=== PATIENT | male | born 1955 | race Caucasian/White ===

== ENCOUNTER 2018-03-28 08:55 | Emergency (ER) | payer MEDICARE ==
[~2018-03-28] VITALS: Ht 182.9 cm; Wt 99.8 kg
[2018-03-28 09:19] LABS: BASOPHILS ABSOLUTE AUTO 0.06 K/mm3 (0.00-0.23); BASOPHILS PERCENT AUTO 1 % (0-2); EOSINOPHILS ABSOLUTE AUTO 0.14 K/mm3 (0.00-0.68); EOSINOPHILS PERCENT AUTO 3 % (0-6); Hematocrit 47.8 % (37.0-53.0); Hemoglobin 16.5 g/dL (13.5-17.5); IMMATURE GRAN ABSOLUTE AUTO 0.01 K/mm3 (0.00-0.10); IMMATURE GRAN PERCENT AUTO 0 % (0-1); LYMPHOCYTES ABSOLUTE AUTO 1.57 K/mm3 (0.84-5.20); LYMPHOCYTES PERCENT AUTO 33 % (21-46); MONOCYTES ABSOLUTE AUTO 0.61 K/mm3 (0.16-1.47); MONOCYTES PERCENT AUTO 13 % (4-13); Mean Corpuscular HGB Conc 34.5 g/dL (31.5-36.5); Mean Corpuscular Volume 96 fL (80-100); Mean Platelet Volume 8.2 fL (9.1-12.4); NEUTROPHILS ABSOLUTE AUTO 2.35 K/mm3 (1.96-9.15); NEUTROPHILS PERCENT AUTO 50 % (41-73); Platelet Count 94 K/mm3 (150-400); RDW Standard Deviation 55.7 fL (35.1-46.3); White Blood Cell Count 4.74 K/mm3 (4.00-11.30)
[2018-03-28 09:40] LABS: Alanine Aminotransfer (ALT/SGP 30 U/L (12-78); Albumin, Blood 3.9 g/dL (3.4-5.0); Alk Phos 75 U/L (50-136); Anion Gap 10 mmol/L (6-16); Aspartate Aminotrans (AST/SGOT 31 U/L (12-37); Bilirubin, Total 0.7 mg/dL (0.1-1.0); Blood Urea Nitrogen 8 mg/dL (8-24); Bun/Creatinine Ratio 9.5 (12.0-20.0); CO2, Blood 27 mmol/L (21-32); Calcium, Blood 8.5 mg/dL (8.5-10.1); Chloride, Blood 102 mmol/L (98-108); Creatinine, Blood 0.84 mg/dL (0.60-1.20); Ethanol (Alcohol), Blood, Med 242 mg/dL; Glomerular Filtration Rate >60 (60-); Glucose, Blood 75 mg/dL (70-99); Potassium, Blood 3.7 mmol/L (3.5-5.5); Sodium, Blood 139 mmol/L (136-145); Total Protein, Blood 7.9 g/dL (6.4-8.2); Troponin I <0.015 ng/mL (0.000-0.040)
[2018-03-28 10:15] LABS: International Normalized Ratio 1.01; Prothrombin Time Results 10.4 Sec (9.7-11.5)
== END 2018-03-28 11:03 | disposition home or self-care (01) ==
LOC: ER 08:55
PROVIDERS: Emergency Medicine
DX: R60.0 Localized edema (principal); F10.129 Alcohol abuse with intoxication, unspecified; I10 Essential (primary) hypertension; F17.220 Nicotine dependence, chewing tobacco, uncomplicated
CPT/HCPCS: 71046; 80053; 83690; 83880; 84484; 85025; 85610; 85730; 96374; 99283; G0480; J1940

== ENCOUNTER 2018-03-28 19:30 | Emergency (ER) | payer MEDICARE ==
[~2018-03-28] VITALS: Ht 185.4 cm; Wt 99.8 kg
== END 2018-03-28 22:29 | disposition home or self-care (01) ==
LOC: ER 19:30
DX: L55.9 Sunburn, unspecified (principal); R60.0 Localized edema; F10.129 Alcohol abuse with intoxication, unspecified; I10 Essential (primary) hypertension; F17.220 Nicotine dependence, chewing tobacco, uncomplicated; Z59.0 Homelessness; R00.0 Tachycardia, unspecified
CPT/HCPCS: 93005; 93010

== ENCOUNTER 2018-04-01 10:08 | Emergency (ER) | payer MEDICARE ==
[~2018-04-01] VITALS: Ht 185.4 cm; Wt 99.8 kg
[2018-04-01 11:03] LABS: BASOPHILS ABSOLUTE AUTO 0.03 K/mm3 (0.00-0.23); BASOPHILS PERCENT AUTO 1 % (0-2); EOSINOPHILS ABSOLUTE AUTO 0.05 K/mm3 (0.00-0.68); EOSINOPHILS PERCENT AUTO 1 % (0-6); Hematocrit 43.3 % (37.0-53.0); IMMATURE GRAN ABSOLUTE AUTO 0.01 K/mm3 (0.00-0.10); IMMATURE GRAN PERCENT AUTO 0 % (0-1); LYMPHOCYTES PERCENT AUTO 20 % (21-46); MONOCYTES PERCENT AUTO 10 % (4-13); Mean Corpuscular HGB 33.3 pg (26.0-34.0); Mean Corpuscular HGB Conc 34.6 g/dL (31.5-36.5); Mean Corpuscular Volume 96 fL (80-100); Mean Platelet Volume 8.8 fL (9.1-12.4); NEUTROPHILS ABSOLUTE AUTO 2.68 K/mm3 (1.96-9.15); NEUTROPHILS PERCENT AUTO 67 % (41-73); Platelet Count 75 K/mm3 (150-400); RDW Coefficient Variation 16.1 % (11.7-14.2); RDW Standard Deviation 56.8 fL (35.1-46.3); White Blood Cell Count 3.97 K/mm3 (4.00-11.30)
[2018-04-01 11:25] LABS: Alanine Aminotransfer (ALT/SGP 31 U/L (12-78); Albumin, Blood 3.7 g/dL (3.4-5.0); Alk Phos 67 U/L (50-136); Anion Gap 17 mmol/L (6-16); Aspartate Aminotrans (AST/SGOT 35 U/L (12-37); Bilirubin, Total 1.5 mg/dL (0.1-1.0); Blood Urea Nitrogen 13 mg/dL (8-24); Bun/Creatinine Ratio 16.8 (12.0-20.0); CO2, Blood 21 mmol/L (21-32); Calcium, Blood 8.6 mg/dL (8.5-10.1); Chloride, Blood 100 mmol/L (98-108); Creatinine, Blood 0.77 mg/dL (0.60-1.20); Ethanol (Alcohol), Blood, Med 17 mg/dL; Globulin, Blood 3.7 g/dL (2.2-4.0); Glomerular Filtration Rate >60 (60-); Glucose, Blood 56 mg/dL (70-99); Potassium, Blood 3.6 mmol/L (3.5-5.5); Sodium, Blood 138 mmol/L (136-145); Total Protein, Blood 7.4 g/dL (6.4-8.2); Troponin I <0.015 ng/mL (0.000-0.040)
[2018-04-01] MEDS ORDERED: CHLO25 PO (14:30)
== END 2018-04-01 14:32 | disposition home or self-care (01) ==
LOC: ER 10:08
PROVIDERS: Emergency Medicine
DX: F10.239 Alcohol dependence with withdrawal, unspecified (principal); Y90.0 Blood alcohol level of less than 20 mg/100 ml
CPT/HCPCS: 71046; 80053; 83880; 84484; 85025; 93005; 93010; 99285; G0480

== ENCOUNTER → 2019-05-26 | Outpatient (CLI) | payer MEDICARE ==
[~2019-05-26] MED LIST: CEPH500 PO; CHLO25 PO; FURO20 PO; Flomax0.4 MG PO; GABA100 PO; Keflex500 MG PO; POTA10T PO; TAMS.4ER PO; Tylenol325 MG PO
== END | disposition home or self-care (01) ==
LOC: LAB SHORT 11:13 → LAB EV 11:13
DX: L02.11 Cutaneous abscess of neck (principal); L03.221 Cellulitis of neck
CPT/HCPCS: 87070; 87075; 87205

== ENCOUNTER 2019-07-02 15:22 | Observation (INO) | payer MEDICARE ==
[~2019-07-02] VITALS: Ht 185.4 cm; Wt 110.3 kg
[~2019-07-02 15:22] MED LIST changes: -CEPH500 PO; -FURO20 PO; -Flomax0.4 MG PO; -GABA100 PO; -Keflex500 MG PO; -POTA10T PO; -TAMS.4ER PO; -Tylenol325 MG PO
[2019-07-02 16:23] LABS: BASOPHILS ABSOLUTE AUTO 0.04 K/mm3 (0.00-0.23); BASOPHILS PERCENT AUTO 0 % (0-2); EOSINOPHILS ABSOLUTE AUTO 0.01 K/mm3 (0.00-0.68); EOSINOPHILS PERCENT AUTO 0 % (0-6); Hematocrit 43.6 % (37.0-53.0); Hemoglobin 15.2 g/dL (13.5-17.5); IMMATURE GRAN ABSOLUTE AUTO 0.04 K/mm3 (0.00-0.10); IMMATURE GRAN PERCENT AUTO 0 % (0-1); LYMPHOCYTES ABSOLUTE AUTO 0.84 K/mm3 (0.84-5.20); LYMPHOCYTES PERCENT AUTO 9 % (21-46); MONOCYTES ABSOLUTE AUTO 0.67 K/mm3 (0.16-1.47); MONOCYTES PERCENT AUTO 7 % (4-13); Mean Corpuscular HGB 34.1 pg (26.0-34.0); Mean Corpuscular HGB Conc 34.9 g/dL (31.5-36.5); Mean Corpuscular Volume 98 fL (80-100); Mean Platelet Volume 8.8 fL (9.1-12.4); NEUTROPHILS PERCENT AUTO 83 % (41-73); Platelet Count 79 K/mm3 (150-400); RDW Coefficient Variation 16.3 % (11.7-14.2); RDW Standard Deviation 59.2 fL (35.1-46.3); Red Blood Cell Count 4.46 M/mm3 (4.30-5.90)
[2019-07-02 16:44] LABS: Alanine Aminotransfer (ALT/SGP 32 U/L (12-78); Albumin, Blood 3.4 g/dL (3.4-5.0); Albumin/Globulin Ratio 0.8 (0.8-1.8); Alk Phos 82 U/L (50-136); Anion Gap 9 mmol/L (6-16); Aspartate Aminotrans (AST/SGOT 42 U/L (12-37); Bilirubin, Total 2.1 mg/dL (0.1-1.0); Blood Urea Nitrogen 12 mg/dL (8-24); Bun/Creatinine Ratio 17.2 (12.0-20.0); CO2, Blood 24 mmol/L (21-32); Calcium, Blood 8.9 mg/dL (8.5-10.1); Chloride, Blood 97 mmol/L (98-108); Globulin, Blood 4.2 g/dL (2.2-4.0); Glomerular Filtration Rate >60 (60-); Glucose, Blood 88 mg/dL (70-99); Potassium, Blood 3.9 mmol/L (3.5-5.5); Sodium, Blood 130 mmol/L (136-145); Total Protein, Blood 7.6 g/dL (6.4-8.2)
[2019-07-02 18:15] LABS: Source, Urine Clean Catch
[2019-07-02 18:21] LABS: Bilirubin, Urine Neg (Neg); Blood, Urine 2+ (Neg); Glucose Qualitative, Urine Neg (Neg); Ketones, Urine 2+ (Neg); Leukocyte Esterase, Urine 3+ (Neg); Nitrite, Urine Neg (Neg); Protein, Urine 2+ (Neg); Specific Gravity, Urine 1.015 (1.003-1.022); Urobilinogen, Urine NORM (Normal)
[2019-07-02 18:31] LABS: Appearance, Urine Clear (Clear); Color, Urine Yellow (P-Yellow)
[2019-07-02 18:33] LABS: White Blood Cells, Urine 25-50 /hpf (0-5)
[2019-07-02 18:34] LABS: Bacteria Many /hpf; Squamous Epithelial Cells Rare /hpf (Few)
--- NOTE | 2019-07-02 22:00 | NUR ---
PATIENT ARRIVED FROM ON [facility] AT 2140. PATIENT ABLE TO STAND AND TRANSFER TO THE [facility] WITH ONEE ASSIST. PATIENT VERY UNSTEADY AND NOT ABLE TO STAND ERECT. PATIENT SKIN IS RED ALL OVER. PATIENT BLE =3 SLIGHTLY GREATER IN THE RIGHT THAN LEFT. PATIENT STATES IT HAS BEEN GOING ON FOR 20 YRS. PATIENT HAS SWELLING NOTED ALL OVER. PATIENT DENIES ANY PAIN AT THIS TIME. WHEN ASKED IF HE HAD SUCIDAL THOUGHTS HE STATED YES AND THAT HE HAS ATTEMPTED TO SWALLOW A BUNCH OF PILLS IN THE PAST, BUT HAS NO CURRENT PLAN TO HURT HIMSELF. PATIENT IS ANXIOUS AND STATES THAT "THEY ARE GOING TO KILL HIM". PATIENT NOT ABLE TO STATE WHO THEY ARE. STATES THEY MAKE HIM MOVE AND CALL HIM NAMES, SHICH IS WHY HE IS HOMELESS. PATIENT STATES HE HAS BIPOLAR AND SCHIXOPHRENIA BUT DOES NOT TAKE ANY MEDICATIONS. PATIENT STATES HE HEARS VOICES BUT THEY USUALLY ONLY COME TO HIM WHEN HE IS BY HIMSELF. PATIENT IS REQUESTING HELP WITH [employer] TO FIND HOUSING.
--- NOTE | 2019-07-02 22:40 | NUR ---
CALLED PHARMACIST TO VERIFY IF IT WAS OK TO GIVE LOVENOX DUE TO PLT COUNT OF 79. PHARMACIST ALIZA HOROWITZ STATED HE SPOKE WITH DR. CHRISTIANSEN WHO STATED TO GIVE LOVENOX AND WILL MONITOR PLT CLOSELY. NO ORDERS TAKEN.
--- NOTE | 2019-07-03 01:32 | NUR ---
PATIENT RESTING IN BED AND APPEARS TO BE SLEEPING COMFORTABLY, SNORING LOUDLY.
[2019-07-03 04:21] LABS: Hematocrit 38.4 % (37.0-53.0); Hemoglobin 12.9 g/dL (13.5-17.5); Mean Corpuscular HGB 33.8 pg (26.0-34.0); Mean Corpuscular HGB Conc 33.6 g/dL (31.5-36.5); Platelet Count 67 K/mm3 (150-400); RDW Coefficient Variation 16.8 % (11.7-14.2); RDW Standard Deviation 62.3 fL (35.1-46.3); Red Blood Cell Count 3.82 M/mm3 (4.30-5.90); White Blood Cell Count 6.86 K/mm3 (4.00-11.30)
[2019-07-03 04:27] LABS: Mean Corpuscular Volume 101 fL (80-100)
[2019-07-03 04:45] LABS: Alanine Aminotransfer (ALT/SGP 24 U/L (12-78); Albumin, Blood 2.6 g/dL (3.4-5.0); Albumin/Globulin Ratio 0.7 (0.8-1.8); Alk Phos 75 U/L (50-136); Anion Gap 6 mmol/L (6-16); Aspartate Aminotrans (AST/SGOT 29 U/L (12-37); Bilirubin, Total 0.9 mg/dL (0.1-1.0); Blood Urea Nitrogen 21 mg/dL (8-24); Bun/Creatinine Ratio 25.8 (12.0-20.0); CO2, Blood 28 mmol/L (21-32); Calcium, Blood 8.4 mg/dL (8.5-10.1); Chloride, Blood 102 mmol/L (98-108); Creatinine, Blood 0.81 mg/dL (0.60-1.20); Globulin, Blood 3.8 g/dL (2.2-4.0); Glomerular Filtration Rate >60 (60-); Glucose, Blood 109 mg/dL (70-99); Potassium, Blood 3.2 mmol/L (3.5-5.5); Sodium, Blood 136 mmol/L (136-145); Total Protein, Blood 6.4 g/dL (6.4-8.2)
--- NOTE | 2019-07-03 05:56 | NUR ---
PATIENT STATING HE IS VERY TIRED WHEN WOKEN HAS BEEN SLEEPING SINCE SHORTLY AFTER ARRIVING TO THE FLOOR. PATIENT HAD ABED BATH AND A SANDWICH THEN WENT TO SLEEP. PATIENT HAS BEEN APPROPRIATE WITH USING CALL LIGHT. BED ALARM ON. CIWA 3. PATIENT ABLE TO TAKE PILLS WHOLE WITH WATER THIS AM WITHOUT ANY DIFFICULTIES.
--- NOTE | 2019-07-03 18:36 | NUR ---
SHIFT SUMMARY PT A&Ox3, CALM AND COOPERATIVE WITH CARE. PT RESTING IN BED DURING SHIFT. SBA IN ROOM. PT REPORTS HEADACHE THIS AFTERNOON, MEDICATED WITH TYLENOL WITH POSITIVE RESULTS. CIWA 3-7 T/O SHIFT, TREMORS AND DAVILA NOTED. SP02 >94% ON RA. PT DENIES NAUSEA, GOOD APPETEITE. ROLLE IN PLACE, PATENT AND DRAINING, STARTED BLADDER TRAINING THIS AFTERNOON, PT HAS NOT HAD URGE TO VOID, URINE OUTPUT OF 500cc, DARK YELLOW, PINK TINGED, NOTITIED DR GARCIA, NEW ORDERS PLACED, WILL CONTINUE TO MONITOR. PT STARTED ON FLOMAX THIS AM. PT RECEIVING NS AT 75ML/HR AND IV ANTIBIOTICS. VSS. NO OTHER ACUTE CHANGES NOTED DURING SHIFT. WILL CONTINUE TO MONITOR.
--- NOTE | 2019-07-03 19:54 | NUR ---
UNCLAMPED ROLLE AT 1930, 200CC OF URINE OUT. RECLAMPED 15 MINS LATER. PATIENT EDUCATED ON BLADDER TRAINING AND INFORMED WE WOULD BE DOING THROUGH THE NIGHT.
--- NOTE | 2019-07-04 00:05 | NUR ---
PATIENT ROLLE UNCLAPPED FOR 15 MINUTES. PATIENT DENIES ANY SENSATION TO URINATE. APPROXIAMATELY 400CC OUT.
--- NOTE | 2019-07-04 04:00 | NUR ---
UNCLAMPED ROLLE FOR 20 MINUTES. PATIENT HAD NO SENSATION OF NEEDING TO URINATE. APPROXIMATELY 200 CC OUT.
[2019-07-04 04:05] LABS: BASOPHILS ABSOLUTE AUTO 0.04 K/mm3 (0.00-0.23); BASOPHILS PERCENT AUTO 1 % (0-2); EOSINOPHILS ABSOLUTE AUTO 0.07 K/mm3 (0.00-0.68); EOSINOPHILS PERCENT AUTO 2 % (0-6); Hematocrit 38.1 % (37.0-53.0); Hemoglobin 12.6 g/dL (13.5-17.5); IMMATURE GRAN ABSOLUTE AUTO 0.03 K/mm3 (0.00-0.10); IMMATURE GRAN PERCENT AUTO 1 % (0-1); LYMPHOCYTES ABSOLUTE AUTO 1.35 K/mm3 (0.84-5.20); LYMPHOCYTES PERCENT AUTO 33 % (21-46); MONOCYTES ABSOLUTE AUTO 0.34 K/mm3 (0.16-1.47); MONOCYTES PERCENT AUTO 8 % (4-13); Mean Corpuscular HGB 33.2 pg (26.0-34.0); Mean Corpuscular HGB Conc 33.1 g/dL (31.5-36.5); Mean Corpuscular Volume 100 fL (80-100); Mean Platelet Volume 9.7 fL (9.1-12.4); NEUTROPHILS ABSOLUTE AUTO 2.33 K/mm3 (1.96-9.15); NEUTROPHILS PERCENT AUTO 56 % (41-73); Platelet Count 67 K/mm3 (150-400); RDW Coefficient Variation 16.4 % (11.7-14.2); RDW Standard Deviation 60.8 fL (35.1-46.3); White Blood Cell Count 4.16 K/mm3 (4.00-11.30)
[2019-07-04 04:22] LABS: Anion Gap 6 mmol/L (6-16); Blood Urea Nitrogen 14 mg/dL (8-24); Bun/Creatinine Ratio 17.8 (12.0-20.0); CO2, Blood 26 mmol/L (21-32); Chloride, Blood 104 mmol/L (98-108); Creatinine, Blood 0.79 mg/dL (0.60-1.20); Glomerular Filtration Rate >60 (60-); Glucose, Blood 89 mg/dL (70-99); Magnesium, Blood 2.2 mg/dL (1.6-2.4); Potassium, Blood 3.7 mmol/L (3.5-5.5); Sodium, Blood 136 mmol/L (136-145)
--- NOTE | 2019-07-04 05:45 | NUR ---
PATIENT RESTING IN BED, CIWA STABLE. PATIENT DENIES ANY PAIN OR NEEDS. SLEEPING THROUGH NIGHT. NOT ABLE TO FEEL FULL SENSATION IN BLADDER OR FEEL THE NEED TO URINATE. CALL LIGHT WITH IN REACH.
--- NOTE | 2019-07-04 11:04 | NUR ---
NOTIFIED DR GARCIA THAT BLADDER TRAINING IS NOT EFFECTIVE, NEW ORDERS TO DISCONTINUE BLADDER TRAINING FOR THE DAY AND RESTART IN AM.
--- NOTE | 2019-07-04 16:55 | NUR ---
SHIFT SUMMARY PT A&Ox3, CALM AND COOPERATIVE WITH CARE. PT RESTING IN BED, SBA TO BATHROOM AND UP TO SHOWER THIS AFTERNOON. PT REPORTS NAUSEA EARLY THIS AM, DENIES NAUSEA AFTER BREAKFAST AND FOR REMAINDER OF SHIFT. PT DENIES PAIN AND SOB T/O SHIFT. PT SPO2 >94% ON RA. CIWA STABLE T/O SHIFT. PT RECEIVING IV ANTIBITOICS AND IV FLUIDS. INCREASED URINE OUTPUT OVER THE LAST [address] AND DRAINING, PLANS TO RESTART BLADDER TRAINING IN AM. VSS. NO OTHER ACUTE CHANGES NOTED DURING SHIFT. WILL CONTINUE TO MONITOR UNITL REPORT GIVEN TO ONCOMING RN.
--- NOTE | 2019-07-05 05:40 | NUR ---
PATIENT CIWA REMAINS 4 THROUGH THE NIGHT. PATIENT COMPLAINS OF DEPRESSION AND FEELING TIRED ALL THE TIME. PATIENT STATES HE HAS BEEN MEDICATED FOR THIS IN THE PAST AND THINKS HE NEEDS SOMETHING FOR IT NOW. PATIENT DENIES ANY PAIN. CALL LIGHT REMAINS WITH IN REACH THROUGH THE NIGHT. PATIENT STATES HE IS GETTING GOOD SLEEP.
--- NOTE | 2019-07-05 07:51 | NUR ---
PT DENIES SI THIS AM, PT PLEASANT MAKES GOOD EYE CONTACT. NADN. DENIES PAIN, STS SLEEP WAS NOT GREAT QUALITY STS SLEEP WAS AT HIS BASELINE
--- NOTE | 2019-07-05 11:15 | NUR ---
45 MINUTES OF BLADDER TRAINING WITH ROLLE CLAMPED PT BARREL ASSEMBLY INSPECTOR LIGHT REPORTS SENSATION OF NEEDING TO URINATE, 400ML CLEAR YELLOW URINE OUT AT THIS TIME. ROLLE RECLAMPED TO CONTINUE BLADDER TRAINING
--- NOTE | 2019-07-05 12:39 | NUR ---
PT RASPER MACHINE OPERATOR LIGHT WITH URGE TO VOID, ROLLE UNCLAMPED WITH 250 ML CLEAR URINE OUTPUT, ROLLE IS RECLAMPED, PT EDUCATED THAT ABOUT BLADDER TRAINING AND REMOVAL OF ROLLE IF URGE TO VOID CONTINUES
--- NOTE | 2019-07-05 13:10 | NUR ---
ROLLE REMOVED INTACT, PT WITH 700ML TOTAL URINE OUTPUT WITH BLADDER TRAINING. PT PROVIDED WITH URINAL AND INSTRUCTED ON USE OF URINAL AND CALL LIGHT PT EXPRESSED UNDERSTANDING OF TEACHING
--- NOTE | 2019-07-05 17:30 | NUR ---
SHIFT NOTE PT QUIET FLAT AFFECT T/O THE DAY, PLEASANT AND CONVERSIVE WHEN SPOKEN TO. PT HAD REPORTED LAST NOC DEPRESSIVE THOUGHTS, THIS AM DENIES DEPRESSIVE THOUGHTS OR SI. PT INDEPENDANTLY PERFORMS ADLs WAS UP TO SHOWER WITHOUT ASSISTANCE, THIS RN DID STAND BY BUT NO HELP WAS NEEDED. PT'S ROLLE WAS D/C AFTER 3 HOUR BLADDER TRAINING, PT IS VOIDING IN URINAL AT BEDSIDE W/O SIFFICULTY. WILL CONTINUE TO OBSERVE OVERNIGHT, PLAN IS TO D/C PT TOMORROW TO HOME. WILL FOLLOW UP IN THE AM WITH D/C PLANNING AND REPEAT PT/OT CONSULT PER DR GARCIA
--- NOTE | 2019-07-06 06:16 | NUR ---
PCU NOC SHIFT SUMMARY PATIENT MEDICAL FLOOR STATUS NO TELE. PATIENT ALERT AND ORIENTED X4, RESTFUL T/O SHIFT. PATIENT DENIED ANY THOUGHTS OF HARMING HIMSELF T/O THE SHIFT. PATIENT IS HOMELESS AND CONCERNED ABOUT DISCHARGE. DISCHARGE ORDERS ON ON THE FRONT OF PATIENTS CHART. PATIENT DENIES ANY PAIN T/O SHIFT. RESP E/U ON ROOM AIR. PATIENT VOIDING YELLOW URINE IN HIS URINAL. CALL LIGHT W/I REACH, WILL CONTINUE TO MONITOR AND REPORT TO DAYSHIFT RN.
--- NOTE | 2019-07-06 08:59 | NUR ---
P DENIES HI/SI, DENIES CONCERNS ABOUT PENDING D/C TODAY PT ASKS NUMEROUS TIMES WHAT TIME HE WILL BE D/C TODAY, PT EDUCATED. PT HAD SLIGHT FEVER LAST NOC PER NOC SHIFT RN THAT RESOLVED WITH ADMINISTRATION OF TYLENOL, AFEBRILE THIS AM.
--- NOTE | 2019-07-06 10:07 | NUR ---
PT UP TO SHOWER WITH STEADY GAIT, INDEPENDANT AMBULATION AND ADLs
[2019-07-06] MEDS ORDERED: CEPH500 PO (10:42)
[2019-07-06] MEDS ORDERED: Tylenol325 MG PO (10:44)
[2019-07-06] MEDS ORDERED: TAMS.4ER PO (10:45)
--- NOTE | 2019-07-06 11:12 | NUR ---
PT REFUSED TO PROVIDE PHARMACY STS "NO BECUASE I AM NOT GOING TO GET IT" PT EDUCATED ABOUT IMPORTANCE OF OBTAINING HIS RX FROM PHARMACY, AND ANTIBIOTIC USE PT AGAIN STS "WELL I'M NOT GOING TO GO GET IT" PT AGAIN EDUCATED AND CONTINUES TO STATE THAT HE HAS NO INTENTION OF OBTAINING RX FROM PHARMACY. PT IS UPDATED THAT HE WILL NOT PROVIDE A PREFERRED PHARMACY THAT THAT THIS RN WILL SEND RX TO [facility] PT STS "WELL I'M NOT GOING TO GO GET IT" RX FAXED AND CALLED TO [facility].
--- NOTE | 2019-07-06 12:04 | NUR ---
DISCHARGE NOTE PT WAS NOT RECEPTIVE TO D/C TEACHING, PT EDUCATED THOROUGHLY ABOUT MEDICATIONS AND D/C PLAN.
== END 2019-07-06 11:43 | disposition home or self-care (01) ==
LOC: ER 15:22 → PCU 15:23
PROVIDERS: Internal Medicine; Physician Assistant; ADMIT Internal Medicine
DX: N39.0 Urinary tract infection, site not specified (principal); R33.9 Retention of urine, unspecified; F10.239 Alcohol dependence with withdrawal, unspecified; I10 Essential (primary) hypertension; D69.6 Thrombocytopenia, unspecified; E87.6 Hypokalemia; B96.20 Unspecified Escherichia coli [E. coli] as the cause of diseases classified elsewhere; Z74.09 Other reduced mobility
CPT/HCPCS: 36415; 51702; 51798; 71046; 76770; 80048; 80053; 81001; 83605; 83690; 83735; 85025; 85027; 87077; 87086; 87186; 96361; 96365-59; 96366; 96372; 96375-59; 97110; 97162; 97165; 97530; 99284-25; A9270; G0378; J0696; J1650; J2060; J2405; J3411; J3475; J7030; J7042

== ENCOUNTER 2019-07-29 17:52 | Emergency (ER) | payer MEDICARE ==
[~2019-07-29] VITALS: Ht 185.4 cm; Wt 108.9 kg
[~2019-07-29 17:52] MED LIST changes: +CEPH500 PO; +TAMS.4ER PO; +Tylenol325 MG PO
[2019-07-29 18:45] LABS: Source, Urine Catheter
[2019-07-29 18:55] LABS: Appearance, Urine Hazy (Clear); Bilirubin, Urine Neg (Neg); Blood, Urine 2+ (Neg); Color, Urine Yellow (P-Yellow); Glucose Qualitative, Urine Neg (Neg); Ketones, Urine Neg (Neg); Leukocyte Esterase, Urine 3+ (Neg); Nitrite, Urine Neg (Neg); Protein, Urine Neg (Neg); Urobilinogen, Urine NORM (Normal)
[2019-07-29 19:53] LABS: Bacteria Many /hpf; Squamous Epithelial Cells Rare /hpf (Few); White Blood Cells, Urine 50-100 /hpf (0-5)
[2019-07-29 20:39] LABS: BASOPHILS ABSOLUTE AUTO 0.04 K/mm3 (0.00-0.23); BASOPHILS PERCENT AUTO 1 % (0-2); EOSINOPHILS ABSOLUTE AUTO 0.18 K/mm3 (0.00-0.68); EOSINOPHILS PERCENT AUTO 4 % (0-6); Hematocrit 42.6 % (37.0-53.0); Hemoglobin 14.3 g/dL (13.5-17.5); IMMATURE GRAN ABSOLUTE AUTO 0.02 K/mm3 (0.00-0.10); IMMATURE GRAN PERCENT AUTO 1 % (0-1); LYMPHOCYTES ABSOLUTE AUTO 1.78 K/mm3 (0.84-5.20); LYMPHOCYTES PERCENT AUTO 41 % (21-46); MONOCYTES ABSOLUTE AUTO 0.64 K/mm3 (0.16-1.47); MONOCYTES PERCENT AUTO 15 % (4-13); Mean Corpuscular HGB 33.6 pg (26.0-34.0); Mean Corpuscular HGB Conc 33.6 g/dL (31.5-36.5); Mean Corpuscular Volume 100 fL (80-100); Mean Platelet Volume 8.5 fL (9.1-12.4); NEUTROPHILS PERCENT AUTO 39 % (41-73); Platelet Count 95 K/mm3 (150-400); RDW Coefficient Variation 15.3 % (11.7-14.2); RDW Standard Deviation 57.1 fL (35.1-46.3); Red Blood Cell Count 4.25 M/mm3 (4.30-5.90); White Blood Cell Count 4.36 K/mm3 (4.00-11.30)
[2019-07-29 20:56] LABS: Alanine Aminotransfer (ALT/SGP 25 U/L (12-78); Albumin, Blood 3.2 g/dL (3.4-5.0); Albumin/Globulin Ratio 0.8 (0.8-1.8); Alk Phos 89 U/L (50-136); Anion Gap 7 mmol/L (6-16); Aspartate Aminotrans (AST/SGOT 17 U/L (12-37); Bilirubin, Total 0.7 mg/dL (0.1-1.0); Blood Urea Nitrogen 9 mg/dL (8-24); Bun/Creatinine Ratio 10.1 (12.0-20.0); CO2, Blood 27 mmol/L (21-32); Calcium, Blood 8.4 mg/dL (8.5-10.1); Chloride, Blood 106 mmol/L (98-108); Creatinine, Blood 0.89 mg/dL (0.60-1.20); Glomerular Filtration Rate >60 (60-); Glucose, Blood 84 mg/dL (70-99); Potassium, Blood 3.8 mmol/L (3.5-5.5); Sodium, Blood 140 mmol/L (136-145); Total Protein, Blood 7.2 g/dL (6.4-8.2)
[2019-07-29] MEDS ORDERED: Keflex500 MG PO (21:11)
[2019-07-29] MEDS ORDERED: Flomax0.4 MG PO (21:11)
== END 2019-07-29 21:41 | disposition home or self-care (01) ==
LOC: ER 17:52
PROVIDERS: Emergency Medicine; Physician Assistant
DX: N39.0 Urinary tract infection, site not specified (principal); F10.10 Alcohol abuse, uncomplicated; I10 Essential (primary) hypertension; D75.9 Disease of blood and blood-forming organs, unspecified; F17.220 Nicotine dependence, chewing tobacco, uncomplicated; Z59.0 Homelessness; Z79.899 Other long term (current) drug therapy
CPT/HCPCS: 51702; 51798; 80053; 81001; 85025; 87077; 87086; 87186; 96365-59; 99283-25; J0696; J7030

== ENCOUNTER 2019-07-31 03:06 | Emergency (ER) | payer MEDICARE ==
[~2019-07-31] VITALS: Ht 185.4 cm; Wt 108.9 kg
[~2019-07-31 03:06] MED LIST changes: +Flomax0.4 MG PO; +Keflex500 MG PO
== END 2019-07-31 05:10 | disposition home or self-care (01) ==
LOC: ER 03:06
DX: Z46.6 Encounter for fitting and adjustment of urinary device (principal); Z79.899 Other long term (current) drug therapy; I10 Essential (primary) hypertension; F17.220 Nicotine dependence, chewing tobacco, uncomplicated
CPT/HCPCS: 99282

== ENCOUNTER 2019-08-02 11:52 | Inpatient (IN) | payer MEDICARE ==
[~2019-08-02] VITALS: Ht 185.4 cm; Wt 113.9 kg
[2019-08-02 12:45] LABS: BASOPHILS ABSOLUTE AUTO 0.04 K/mm3 (0.00-0.23); BASOPHILS PERCENT AUTO 1 % (0-2); EOSINOPHILS ABSOLUTE AUTO 0.12 K/mm3 (0.00-0.68); EOSINOPHILS PERCENT AUTO 3 % (0-6); Hematocrit 45.2 % (37.0-53.0); Hemoglobin 15.4 g/dL (13.5-17.5); IMMATURE GRAN ABSOLUTE AUTO 0.02 K/mm3 (0.00-0.10); IMMATURE GRAN PERCENT AUTO 0 % (0-1); LYMPHOCYTES ABSOLUTE AUTO 1.09 K/mm3 (0.84-5.20); LYMPHOCYTES PERCENT AUTO 23 % (21-46); MONOCYTES ABSOLUTE AUTO 0.48 K/mm3 (0.16-1.47); MONOCYTES PERCENT AUTO 10 % (4-13); Mean Corpuscular HGB 33.6 pg (26.0-34.0); Mean Corpuscular HGB Conc 34.1 g/dL (31.5-36.5); Mean Corpuscular Volume 99 fL (80-100); Mean Platelet Volume 7.9 fL (9.1-12.4); NEUTROPHILS PERCENT AUTO 62 % (41-73); Platelet Count 120 K/mm3 (150-400); RDW Standard Deviation 54.6 fL (35.1-46.3); Red Blood Cell Count 4.58 M/mm3 (4.30-5.90); White Blood Cell Count 4.65 K/mm3 (4.00-11.30)
[2019-08-02 13:15] LABS: Alanine Aminotransfer (ALT/SGP 28 U/L (12-78); Albumin, Blood 3.6 g/dL (3.4-5.0); Albumin/Globulin Ratio 0.8 (0.8-1.8); Alk Phos 103 U/L (50-136); Anion Gap 11 mmol/L (6-16); Aspartate Aminotrans (AST/SGOT 29 U/L (12-37); Bilirubin, Total 0.8 mg/dL (0.1-1.0); Blood Urea Nitrogen 6 mg/dL (8-24); Bun/Creatinine Ratio 7.6 (12.0-20.0); CO2, Blood 24 mmol/L (21-32); Calcium, Blood 8.9 mg/dL (8.5-10.1); Chloride, Blood 105 mmol/L (98-108); Creatinine, Blood 0.79 mg/dL (0.60-1.20); Globulin, Blood 4.3 g/dL (2.2-4.0); Glomerular Filtration Rate >60 (60-); Glucose, Blood 84 mg/dL (70-99); Potassium, Blood 3.8 mmol/L (3.5-5.5); Sodium, Blood 140 mmol/L (136-145); Total Protein, Blood 7.9 g/dL (6.4-8.2)
[2019-08-02 15:12] LABS: Source, Urine Catheter
[2019-08-02 15:18] LABS: Bilirubin, Urine Neg (Neg); Blood, Urine 5+ (Neg); Glucose Qualitative, Urine Neg (Neg); Ketones, Urine 2+ (Neg); Leukocyte Esterase, Urine 1+ (Neg); Nitrite, Urine Neg (Neg); Protein, Urine 3+ (Neg); Urobilinogen, Urine NORM (Normal)
[2019-08-02 15:28] LABS: Appearance, Urine Cloudy (Clear); Color, Urine Yellow (P-Yellow)
[2019-08-02 15:29] LABS: Bacteria Few /hpf; Red Blood Cells, Urine TNTC /hpf (0-2); Squamous Epithelial Cells Few /hpf (Few)
[2019-08-02 16:52] LABS: Alanine Aminotransfer (ALT/SGP 26 U/L (12-78); Albumin, Blood 3.2 g/dL (3.4-5.0); Albumin/Globulin Ratio 0.7 (0.8-1.8); Alk Phos 96 U/L (50-136); Anion Gap 8 mmol/L (6-16); Aspartate Aminotrans (AST/SGOT 26 U/L (12-37); Blood Urea Nitrogen 7 mg/dL (8-24); Bun/Creatinine Ratio 9.7 (12.0-20.0); CO2, Blood 24 mmol/L (21-32); Calcium, Blood 8.7 mg/dL (8.5-10.1); Chloride, Blood 105 mmol/L (98-108); Creatinine, Blood 0.72 mg/dL (0.60-1.20); Globulin, Blood 4.3 g/dL (2.2-4.0); Glomerular Filtration Rate >60 (60-); Glucose, Blood 91 mg/dL (70-99); Phosphorus, Blood 2.5 mg/dL (2.5-4.9); Potassium, Blood 3.9 mmol/L (3.5-5.5); Sodium, Blood 137 mmol/L (136-145); Total Protein, Blood 7.5 g/dL (6.4-8.2)
[2019-08-02 17:01] LABS: Thyroid Stimulating Hormone 2.36 uIU/mL (0.360-4.800)
--- NOTE | 2019-08-02 19:06 | NUR ---
1625-RECEIVED THIS PT FROM ER WITH A DIAGNOSIS OF ALCOHOL WITHDRAWAL. PT IS ALERT AND ORIENTED. DENIES PAIN. PT CIWA SCORE OF 11. PT IS EDEMATOUS. DISCOLORED LE. 1800-PT DESATTED WHILE PT WAS SLEEPING. 02 SATURATION LOW 88% STARTED O2 A 2LPM NC. 1900-REPORT GIVEN TO MARISA BLCOK.
--- NOTE | 2019-08-02 19:10 | NUR ---
ASSUME CARE: BEDSIDE REPORT RECIEVED FROM MARCSO OFFGOING RN. MONITOR INTACT SHOWING SINUS RHYTHM/SINUS TACH. HEART RATE 90'S-100'S. LUNG SOUNDS CLEAR RESPIRATIONS REGULAR AND EASY WITH O2 IN PLACE AT 2L/MIN PER NASAL CANNULA SPO2 94-97%. ABDOMEN SOFT WITH BOWEL SOUNDS FOUR QUADS. DENIES NEED/URGE TO VOID. PETERS WELL IN BED CIWA 6 TREMORS NOTED. DENIES OTHER S/S. COOPERATIVE TO CARES. CONVERSANT, CALM. TRACE EDEMA TO LOWER EXTREMITIES R GREAT TOE RED. CONTINUE TO MONITOR AND REPORT CHANGE IN PATIENT CONDITION. .
[2019-08-02 19:46] LABS: U Amphetamine Screen Not Detected; U Barbituate Screen Not Detected; U Benzodiazapine Screen DETECTED; U Buprenorphine Screen Not Detected; U Cannabinoids Screen Not Detected; U Cocaine Screen Not Detected; U Methadone Screen Not Detected; U Methamphetamine Screen Not Detected; U Opiates Screen Not Detected; U Oxycodone Screen Not Detected; U Phencyclidine Screen Not Detected; U Propoxyphene Screen Not Detected
[2019-08-03 04:25] LABS: CPK Creatine Kinase 76 U/L (39-308); Creatine Kinase MB 1.3 ng/mL (0.0-3.6); Creatine Kinase MB Index 1.7 (0.0-4.0); Magnesium, Blood 2.3 mg/dL (1.6-2.4); Phosphorus, Blood 2.6 mg/dL (2.5-4.9); Troponin I <0.015 ng/mL (0.000-0.040)
--- NOTE | 2019-08-03 06:30 | NUR ---
shift summary: RESTS QUIETLY WHEN UNDISTURBED. MONITOR INTACT SHOWING SINUS RHYTHM. HEART RATE 70'S-90'S. LUNG SOUNDS CLEAR RESPIRATIONS REGULAR AND EASY WITH O2 IN PLACE AT 2L/MIN. SPO2 90-96%. ABDOMEN SOFT WITH BOWEL SOUNDS FOUR QUADS. ROLLE WITH NO URINE RETURN. CONTINUE TO MONITOR AND REPORT CHAGE IN PATIENT CONDITION. LOWER EXTREMITIES REMAIN REDDENED. TRACE EDEMA. PETERS CIWA 6-7. DENIES DISCOMFORT..DISCUSS URINE OUTPUR WITH SYRUPER
--- NOTE | 2019-08-03 07:17 | NUR ---
START OF SHIFT NOTE: RECEIVED REPORT FROM UMAIR GARCIA RN, ASSUMED CARE, PATIENT IS AWAKE, ALERT AND ORIENTED, SLIGHTLY OFF ON THE DATE, PATIENT HAS A LOW GRADE TEMP OF 99.3, DENIES PAIN, STATES THAT HIS BLADDER FEELS FULL, PATIENT HAS ROLLE CATHETER IN, BUT NO URINE OUTPUT PRESENT, REPEAT BLADDER SCAN DONE, SHOWS GREATER THEN 800 CC IN BLADDER, ROLLE IRRIGAED WITH SALINE, AND URINE NOW FLOWING FREELY, LUNG SOUNDS CLEAR, 2L NC, NSR, BOWEL TONES PRESENT IN ALL FOUR QUADRANTS, PEDAL PULSES PALPABLE, PATIENT HAS TRENCH FOOT, ALSO DISCOLORATION ON BILATERAL FEET AND BOTH HANDS, PATIENT IS COOPERATIVE, TREMORS NOTED AND VISIBLE, CALL LIGHT IN REACH, WILL CONTINUE TO MONITOR.
--- NOTE | 2019-08-03 07:49 | NUR ---
PT CALLED AND ASKED ABOUT PATIENT'S ABILITY TO WORK WITH THEM, PT NOTIFIED THAT IT IS FINE TO WORK WITH PATIENT.
--- NOTE | 2019-08-03 08:48 | NUR ---
PHYSICAL THERAPY IN TO WORK WITH PATIENT, PATIENT STANDING WELL, USES WALKER TO AMBULATE TO CHAIR, UP IN CHAIR AT THIS TIME, TOLERATING WELL, TOOK ALL AM MEDICATION WITHOUT ANY PROBLEM SWALLOWING, MARISA TONY, DISCHARGE PLANER IN TO SPEAK WITH PATIENT, CALL LIGHT IN REACH, WILL CONTINUE TO MONITOR.
--- NOTE | 2019-08-03 09:01 | NUR ---
OT IN TO WORK WITH PATIENT, WHO IS AGREEABLE AND COOPERATIVE AT THIS TIME.
--- NOTE | 2019-08-03 09:49 | NUR ---
PATIENT WORKING WITH OT, DID WELL, RETURNED TO BED, PATIENT ABLE TO STAND AND WALK IN ROOM WITH WALKER, HOWEVER, BECOMES SOB QUICKLY, CALL LIGHT IN REACH, WILL CONTINUE TO MONITOR.
--- NOTE | 2019-08-03 10:18 | NUR ---
CALLED JENI BARNEY TO DC CHEMRAULITO, PATIENT IS NOT A DIABETIC, WILL COME AND SEE PATIENT SHORTLY.
--- NOTE | 2019-08-03 10:36 | NUR ---
PATIENT RESTING COMFORTABLY WITH EYES CLOSED, DR. GARCIA IN TO SEE PATIENT.
--- NOTE | 2019-08-03 10:49 | NUR ---
DR. GARCIA IN TO EXAMINE PATIENT, NEW ORDERS RECEIVED.
--- NOTE | 2019-08-03 13:53 | NUR ---
The pt asked for sandwiches for snack. He eating with a good appetite. CIWA score 7. Librium given with scheduled gabapentin.
--- NOTE | 2019-08-03 16:50 | NUR ---
The pt awakens easily at this time, states that the medication earlier helped his anxiety. He appears very calm and quiet, making little conversation but answering appropriately and cooperating with his care. IV antibiotics infusing at this time.
--- NOTE | 2019-08-03 22:32 | NUR ---
ASSUMED CARE OF PATIENT AT APPROXIMATELY 1910 FROM FRANK Weaver RN. PATIENT HAVING BM DURING SHIFT CHANGE. PATIENT ALERT AND ORIENTED X4; CIWA 11. PATIENT REPORTS PAIN IN PENIS FROM CATH INSERTION; MEDICATE PER EMAR BEFORE SHIFT STARTED AND PATIENT REPORTS PAIN IMPROVED SLIGHTLY; REFUSES OTHER INTERVENTIONS. PATIENT DENIES NUMBNESS, TINGLING, DIZZINESS AND NAUSEA. PATIENT ONE ASSIST OUT OF BED. URINARY CATH DRAINING CLEAR YELLOW URINE. NSR ON TELE; OXYGEN SATURATION ABOVE 90% ON ROOM AIR. PIV S/L. PATIENT CURRENTLY RESTING IN BED; CALL LIGHT IN REACH; BED IN LOWEST POSISTION; BED ALARM ON; WILL CONTINUE TO MONITOR AND ASSESS UNTIL END OF SHIFT.
--- NOTE | 2019-08-04 06:31 | NUR ---
PATIENT SLEPT ABOUT NINE HOURS LAST NIGHT; CIWA 1-11; PAIN CONTROLLED WITH PO MEDICATIONS; CALLED [facility] TO REQUEST URO JET. NO OTHER ACUTE CHANGES TO REPORT. TRANSFER ORDER FOR MEDICAL NO TELE.
--- NOTE | 2019-08-04 14:44 | NUR ---
attetmpted to see pt will try again
[2019-08-04] MEDS ORDERED: FURO20 PO (17:04)
[2019-08-04] MEDS ORDERED: GABA100 PO (17:05)
[2019-08-04] MEDS ORDERED: POTA10T PO (17:05)
[2019-08-04] MEDS ORDERED: TAMS.4ER PO (17:05)
--- NOTE | 2019-08-04 18:36 | NUR ---
Spiritual Care inital visit: Doc is quiet and appears subdued. He is homeless and expressed concern about "winter is coming." He denies friends or family to help. He has a better than average SS income, but is unable to get rental housing without a rental history. He would like to go to [place] for follow-up with Urologist, but he has no way to get there. Apparently, bus tickets must now be purchased online with a credit card. Fabien does not have access to either. He says he feels hopeless. I made some phone calls on his behalf, but these were not fruitful. He will not go to [place] b/c he doesn't like being around people. He admits he would like to quit drinking. I provided contact information for [employer] and encouraged follow-up. He allowed me to hold his hand and offer compassionate presence. He is not restorationist. He is being discharged soon.
== END 2019-08-04 17:50 | disposition home or self-care (01) | DRG 696 ==
LOC: ER 11:52 → ICUW 15:55 → PCU 08-03 12:52
PROVIDERS: Physician Assistant; ADMIT Family Medicine
DX: R33.9 Retention of urine, unspecified (principal); T69.021A Immersion foot, right foot, initial encounter; T69.022A Immersion foot, left foot, initial encounter; Z59.0 Homelessness; I10 Essential (primary) hypertension; E66.9 Obesity, unspecified; Z68.31 Body mass index [BMI] 31.0-31.9, adult
CPT/HCPCS: 36415; 51700; 51702; 80053; 81001; 82140; 82150; 82550; 82553; 82947; 83605; 83690; 83735; 84100; 84443; 84484; 85025; 90686; 93306; 96365; 96375; 97116; 97162; 97166; 97530; 97535; 99284-25; A9270; C9113; G0008; J0696; J1650; J2060; J3411; J3475; J7030; J7042

== ENCOUNTER 2019-08-05 03:03 | Emergency (ER) | payer MEDICARE ==
[~2019-08-05] VITALS: Ht 185.4 cm; Wt 108.9 kg
[~2019-08-05 03:03] MED LIST changes: +FURO20 PO; +GABA100 PO; +POTA10T PO
== END 2019-08-05 05:13 | disposition home or self-care (01) ==
LOC: ER 03:03
DX: T83.091A Other mechanical complication of indwelling urethral catheter, initial encounter (principal); F17.220 Nicotine dependence, chewing tobacco, uncomplicated
CPT/HCPCS: 96372; 99283-25; J1885

== ENCOUNTER → 2019-08-23 | Outpatient (CLI) | payer MEDICARE | END | disposition home or self-care (01) | LOC: LAB SHORT 15:14 → LAB EV 15:14 | DX: R33.9 Retention of urine, unspecified (principal) | CPT/HCPCS: 87077; 87086; 87186 ==

== ENCOUNTER 2019-09-12 20:03 | Emergency (ER) | payer MEDICARE ==
[~2019-09-12] VITALS: Ht 185.4 cm; Wt 102.1 kg
[2019-09-12 21:03] LABS: BASOPHILS ABSOLUTE AUTO 0.09 K/mm3 (0.00-0.23); BASOPHILS PERCENT AUTO 1 % (0-2); EOSINOPHILS PERCENT AUTO 2 % (0-6); Hematocrit 48.5 % (37.0-53.0); Hemoglobin 16.5 g/dL (13.5-17.5); IMMATURE GRAN ABSOLUTE AUTO 0.03 K/mm3 (0.00-0.10); IMMATURE GRAN PERCENT AUTO 0 % (0-1); LYMPHOCYTES ABSOLUTE AUTO 2.57 K/mm3 (0.84-5.20); LYMPHOCYTES PERCENT AUTO 26 % (21-46); MONOCYTES ABSOLUTE AUTO 1.24 K/mm3 (0.16-1.47); MONOCYTES PERCENT AUTO 12 % (4-13); Mean Corpuscular HGB 33.5 pg (26.0-34.0); Mean Corpuscular Volume 99 fL (80-100); Mean Platelet Volume 8.6 fL (9.1-12.4); NEUTROPHILS ABSOLUTE AUTO 5.95 K/mm3 (1.96-9.15); NEUTROPHILS PERCENT AUTO 59 % (41-73); Platelet Count 124 K/mm3 (150-400); RDW Coefficient Variation 12.8 % (11.7-14.2); RDW Standard Deviation 46.6 fL (35.1-46.3); Red Blood Cell Count 4.92 M/mm3 (4.30-5.90); White Blood Cell Count 10.08 K/mm3 (4.00-11.30)
[2019-09-12 21:21] LABS: Alanine Aminotransfer (ALT/SGP 39 U/L (12-78); Albumin/Globulin Ratio 0.9 (0.8-1.8); Alk Phos 81 U/L (50-136); Anion Gap 9 mmol/L (6-16); Aspartate Aminotrans (AST/SGOT 27 U/L (12-37); Bilirubin, Total 0.7 mg/dL (0.1-1.0); Blood Urea Nitrogen 11 mg/dL (8-24); Bun/Creatinine Ratio 13.1 (12.0-20.0); CO2, Blood 25 mmol/L (21-32); Calcium, Blood 8.6 mg/dL (8.5-10.1); Chloride, Blood 102 mmol/L (98-108); Creatinine, Blood 0.84 mg/dL (0.60-1.20); Globulin, Blood 4.4 g/dL (2.2-4.0); Glomerular Filtration Rate >60 (60-); Glucose, Blood 93 mg/dL (70-99); Potassium, Blood 3.3 mmol/L (3.5-5.5); Sodium, Blood 136 mmol/L (136-145); Total Protein, Blood 8.4 g/dL (6.4-8.2)
[2019-09-12 21:23] LABS: Source, Urine Catheter
[2019-09-12 21:25] LABS: Bilirubin, Urine Neg (Neg); Blood, Urine 4+ (Neg); Glucose Qualitative, Urine Neg (Neg); Ketones, Urine Neg (Neg); Leukocyte Esterase, Urine 2+ (Neg); Nitrite, Urine Neg (Neg); Protein, Urine Neg (Neg); Urobilinogen, Urine NORM (Normal)
[2019-09-12 21:32] LABS: Appearance, Urine Clear (Clear); Bacteria Many /hpf; Color, Urine Yellow (P-Yellow); Red Blood Cells, Urine 0-2 /hpf (0-2); Squamous Epithelial Cells Few /hpf (Few)
[2019-09-12] MEDS ORDERED: Keflex500 MG PO (21:51)
[2019-10-31] MEDS ORDERED: ACET325 PO (11:00)
[2019-10-31] MEDS ORDERED: AMOCLA875 PO (11:01)
[2019-10-31] MEDS ORDERED: B-1100 M1 PO (11:01)
[2019-10-31] MEDS ORDERED: Vsl#3 Capsule1 EACH PO (11:01)
== END 2019-09-13 00:11 | disposition home or self-care (01) ==
LOC: ER 20:03
PROVIDERS: Physician Assistant
DX: N39.0 Urinary tract infection, site not specified (principal); E87.6 Hypokalemia; R33.9 Retention of urine, unspecified; I10 Essential (primary) hypertension; F17.220 Nicotine dependence, chewing tobacco, uncomplicated
CPT/HCPCS: 36415; 51702; 51798; 80053; 81001; 83690; 85025; 87077; 87086; 87186; 96361-59; 96365-59; 96366-59; 96375-59; 99283-25; J0696; J2405; J7030

== ENCOUNTER 2019-09-13 13:13 | Emergency (ER) | payer MEDICARE ==
[~2019-09-13] VITALS: Ht 185.4 cm; Wt 106.6 kg
[2019-10-31] MEDS ORDERED: ACET325 PO (11:00)
[2019-10-31] MEDS ORDERED: B-1100 M1 PO (11:01)
[2019-10-31] MEDS ORDERED: AMOCLA875 PO (11:01)
[2019-10-31] MEDS ORDERED: Vsl#3 Capsule1 EACH PO (11:01)
== END 2019-09-13 14:54 | disposition home or self-care (01) ==
LOC: ER 13:13
DX: N39.0 Urinary tract infection, site not specified (principal); F17.220 Nicotine dependence, chewing tobacco, uncomplicated
CPT/HCPCS: 51798; 99283-25; A9270-GY

== ENCOUNTER 2019-09-19 15:48 | Inpatient (IN) | payer MEDICARE ==
[~2019-09-19] VITALS: Ht 185.4 cm; Wt 110.5 kg
[2019-09-19 16:25] LABS: Source, Urine Clean Catch
[2019-09-19 16:28] LABS: BASOPHILS ABSOLUTE AUTO 0.05 K/mm3 (0.00-0.23); BASOPHILS PERCENT AUTO 1 % (0-2); EOSINOPHILS ABSOLUTE AUTO 0.05 K/mm3 (0.00-0.68); EOSINOPHILS PERCENT AUTO 1 % (0-6); Hematocrit 48.5 % (37.0-53.0); Hemoglobin 16.6 g/dL (13.5-17.5); IMMATURE GRAN ABSOLUTE AUTO 0.02 K/mm3 (0.00-0.10); IMMATURE GRAN PERCENT AUTO 0 % (0-1); LYMPHOCYTES ABSOLUTE AUTO 1.05 K/mm3 (0.84-5.20); LYMPHOCYTES PERCENT AUTO 24 % (21-46); MONOCYTES ABSOLUTE AUTO 0.49 K/mm3 (0.16-1.47); MONOCYTES PERCENT AUTO 11 % (4-13); Mean Corpuscular HGB 33.2 pg (26.0-34.0); Mean Corpuscular HGB Conc 34.2 g/dL (31.5-36.5); Mean Corpuscular Volume 97 fL (80-100); Mean Platelet Volume 8.3 fL (9.1-12.4); NEUTROPHILS PERCENT AUTO 63 % (41-73); Platelet Count 163 K/mm3 (150-400); RDW Coefficient Variation 12.9 % (11.7-14.2); RDW Standard Deviation 45.5 fL (35.1-46.3); White Blood Cell Count 4.46 K/mm3 (4.00-11.30)
[2019-09-19 16:30] LABS: Bilirubin, Urine Neg (Neg); Blood, Urine 2+ (Neg); Glucose Qualitative, Urine Neg (Neg); Ketones, Urine 1+ (Neg); Leukocyte Esterase, Urine 3+ (Neg); Nitrite, Urine Neg (Neg); Protein, Urine 2+ (Neg); Urobilinogen, Urine 1+ (Normal)
[2019-09-19 16:36] LABS: Appearance, Urine Clear (Clear); Color, Urine Yellow (P-Yellow)
[2019-09-19 16:37] LABS: Bacteria Many /hpf; Mucus Light (0-Heavy); Squamous Epithelial Cells Few /hpf (Few)
[2019-09-19 16:47] LABS: Alanine Aminotransfer (ALT/SGP 31 U/L (12-78); Albumin, Blood 3.6 g/dL (3.4-5.0); Albumin/Globulin Ratio 0.8 (0.8-1.8); Alk Phos 90 U/L (50-136); Anion Gap 7 mmol/L (6-16); Aspartate Aminotrans (AST/SGOT 22 U/L (12-37); Bilirubin, Total 0.8 mg/dL (0.1-1.0); Blood Urea Nitrogen 13 mg/dL (8-24); Bun/Creatinine Ratio 16.3 (12.0-20.0); CO2, Blood 29 mmol/L (21-32); Calcium, Blood 9.5 mg/dL (8.5-10.1); Chloride, Blood 99 mmol/L (98-108); Globulin, Blood 4.5 g/dL (2.2-4.0); Glomerular Filtration Rate >60 (60-); Glucose, Blood 123 mg/dL (70-99); Potassium, Blood 3.3 mmol/L (3.5-5.5); Sodium, Blood 135 mmol/L (136-145); Total Protein, Blood 8.1 g/dL (6.4-8.2)
[2019-09-20 05:45] LABS: Hematocrit 44.7 % (37.0-53.0); Hemoglobin 15.1 g/dL (13.5-17.5); Mean Corpuscular HGB Conc 33.8 g/dL (31.5-36.5); Mean Corpuscular Volume 98 fL (80-100); Mean Platelet Volume 8.7 fL (9.1-12.4); Platelet Count 134 K/mm3 (150-400); RDW Coefficient Variation 13.1 % (11.7-14.2); RDW Standard Deviation 46.3 fL (35.1-46.3); Red Blood Cell Count 4.58 M/mm3 (4.30-5.90); White Blood Cell Count 4.43 K/mm3 (4.00-11.30)
[2019-09-20 06:12] LABS: Alanine Aminotransfer (ALT/SGP 31 U/L (12-78); Albumin, Blood 3.1 g/dL (3.4-5.0); Albumin/Globulin Ratio 0.9 (0.8-1.8); Alk Phos 73 U/L (50-136); Anion Gap 8 mmol/L (6-16); Aspartate Aminotrans (AST/SGOT 24 U/L (12-37); Bilirubin, Total 0.8 mg/dL (0.1-1.0); Blood Urea Nitrogen 14 mg/dL (8-24); Bun/Creatinine Ratio 16.6 (12.0-20.0); CO2, Blood 28 mmol/L (21-32); Chloride, Blood 102 mmol/L (98-108); Creatinine, Blood 0.84 mg/dL (0.60-1.20); Globulin, Blood 3.6 g/dL (2.2-4.0); Glomerular Filtration Rate >60 (60-); Glucose, Blood 93 mg/dL (70-99); Sodium, Blood 138 mmol/L (136-145); Total Protein, Blood 6.7 g/dL (6.4-8.2)
--- NOTE | 2019-09-20 06:36 | NUR ---
SHIFT SUMMARY PT WAS A NEW ADMIT DURING THE NIGHT, ARRIVING ON THE FLOOR AT 2110. HE IS A&O X 4, AND CURRENTLY BEDREST THE PT REPORTS THAT HIS LEGS ARE TOO WEAK TO WALK DUE TO PAIN. PT REPORTS PAIN BEGAN SUDDENLY TWO DAYS AGO, WHEN HE TRIED TO GET OUT OF BED. PT CAME IN WITH A ROLLE THAT HAD BEEN PLACED A WEEK AGO IN THE ED. PT REFUSED FOR ROLLE TO BE CHANGED ON ADMISSION. PT'S LOWER BACK PAIN WAS DIFFICULT TO CONTROL, HE WAS MEDICATED X 2 WITH IV FENTANYL AND X 2 WITH IV VALIUM WITH MINIMAL RELIEF FROM PAIN EACH TIME. PT DENIED ANY NAUSEA OR SOB. VITAL SIGNS STABLE. NO OTHER ACUTE CHANGES IN PT CONDITION NOTED SINCE ADMISSION. REPORT GIVEN TO ONCOMING MARISA.
[2019-09-20 14:42] LABS: Blood, Urine 4+ (Neg); Glucose Qualitative, Urine Neg (Neg); Ketones, Urine 1+ (Neg); Leukocyte Esterase, Urine 3+ (Neg); Nitrite, Urine Neg (Neg); Protein, Urine 2+ (Neg); Source, Urine Catheter; Specific Gravity, Urine 1.015 (1.003-1.022); Urobilinogen, Urine 1+ (Normal)
[2019-09-20 15:02] LABS: Appearance, Urine Hazy (Clear); Bilirubin, Urine 1+ (Neg); Color, Urine Yellow (P-Yellow)
[2019-09-20 15:04] LABS: Amorphous Mod (0-Heavy); Bacteria Many /hpf; Mucus Light (0-Heavy); Squamous Epithelial Cells Rare /hpf (Few)
--- NOTE | 2019-09-20 15:44 | NUR ---
Patient is lying in bed and alert. Patient is talkative and tells me about his, homelessness, his family unit complications, his alcohol addiction, his maurice and his hopes of finding permenant housing. I listen empathically, challenge his ideas of living in an unhealthy cycle for 20 years, reinforce helpful attitudes and practices, provide companionship and prayer. Patient responds well and shows signs of restored maurice. I will continue to remain available to patient and family.
--- NOTE | 2019-09-20 18:45 | NUR ---
SHIFT SUMMARY EDMOND COMPLAINED OF INTENSE PAIN WITH SPASMS, PAINFUL SPASMS VERY EVIDENT UPON HIS ATTEMPTS TO MOVE AROUND IN BED. RARELY ASKED FOR PAIN MEDICATION. GIVEN IV DILAUDID, IV TORADOL, IV VALIUM, AND PO FLEXERIL AND TYLENOL TO VERY SMALL EFFECT, PAIN STAYED 8/10 FOR MOST OF THE SHIFT. INFORMED DR FLORES, WE ARE AWAITING MRI RESULTS. REPLACED CATHETER AND SENT UA PER PROTOCOL. TELE SHOWING NSR. ABLE TO STAND AND PIVOT X1 TO GET TO STRETCHER. PT IN MRI AT SHIFT CHANGE
--- NOTE | 2019-09-21 03:15 | NUR ---
09/21/19 0200 PT SNORING WITHOUT DISTRESS OR PROBLEMS.
--- NOTE | 2019-09-21 05:09 | NUR ---
09/21/19 0500 PT C/O BACK PAIN/SPASMS AFTER AWAKENING. MEDICATED PER DEC AND ENCOURAGED PT TO LET STAFF TURN HIM OFF HIS BACK AFTER PAIN MEDS WORKING. PT WAS TURNED AT 0430 BY 2 STAFF AND AUPPORTED WITH PILLOWS. HE DID STATE HE WAS THEN "COMFORTABLE". CIWA HAS BEEN LOW.
--- NOTE | 2019-09-21 16:12 | NUR ---
SHIFT SUMMARY. PT LETHARGIC MOST OF THE SHIFT, REFUSES TO REPOSITION IN BED SECONDARY TO INCREASED PAIN WITH MOVEMENT. PT WITHOUT N/V, OR SOB. ROLLE PATENT AND DRAINING. NO NEW CHANGES OR CONCERNS.
--- NOTE | 2019-09-21 18:52 | NUR ---
PT REFUSING TO HAVE SARIAH REMOVED THIS P.M.
[2019-09-22 05:18] LABS: BASOPHILS ABSOLUTE AUTO 0.02 K/mm3 (0.00-0.23); BASOPHILS PERCENT AUTO 1 % (0-2); EOSINOPHILS ABSOLUTE AUTO 0.01 K/mm3 (0.00-0.68); EOSINOPHILS PERCENT AUTO 0 % (0-6); Hematocrit 45.3 % (37.0-53.0); Hemoglobin 15.5 g/dL (13.5-17.5); IMMATURE GRAN ABSOLUTE AUTO 0.03 K/mm3 (0.00-0.10); IMMATURE GRAN PERCENT AUTO 1 % (0-1); LYMPHOCYTES ABSOLUTE AUTO 0.53 K/mm3 (0.84-5.20); LYMPHOCYTES PERCENT AUTO 16 % (21-46); MONOCYTES PERCENT AUTO 3 % (4-13); Mean Corpuscular HGB Conc 34.2 g/dL (31.5-36.5); Mean Corpuscular Volume 96 fL (80-100); Mean Platelet Volume 8.8 fL (9.1-12.4); NEUTROPHILS ABSOLUTE AUTO 2.58 K/mm3 (1.96-9.15); NEUTROPHILS PERCENT AUTO 79 % (41-73); Platelet Count 129 K/mm3 (150-400); RDW Coefficient Variation 12.8 % (11.7-14.2); RDW Standard Deviation 45.2 fL (35.1-46.3); White Blood Cell Count 3.27 K/mm3 (4.00-11.30)
[2019-09-22 05:41] LABS: Alanine Aminotransfer (ALT/SGP 31 U/L (12-78); Albumin, Blood 3.3 g/dL (3.4-5.0); Albumin/Globulin Ratio 0.7 (0.8-1.8); Alk Phos 80 U/L (50-136); Anion Gap 8 mmol/L (6-16); Aspartate Aminotrans (AST/SGOT 19 U/L (12-37); Bilirubin, Total 0.9 mg/dL (0.1-1.0); Blood Urea Nitrogen 18 mg/dL (8-24); Bun/Creatinine Ratio 24.2 (12.0-20.0); CO2, Blood 25 mmol/L (21-32); Calcium, Blood 9.2 mg/dL (8.5-10.1); Chloride, Blood 101 mmol/L (98-108); Creatinine, Blood 0.74 mg/dL (0.60-1.20); Globulin, Blood 4.5 g/dL (2.2-4.0); Glomerular Filtration Rate >60 (60-); Glucose, Blood 129 mg/dL (70-99); Magnesium, Blood 2.3 mg/dL (1.6-2.4); Sodium, Blood 134 mmol/L (136-145); Total Protein, Blood 7.8 g/dL (6.4-8.2)
--- NOTE | 2019-09-22 06:01 | NUR ---
09/22/19 0600 PT MEDICATED REGULARLY FOR LOW BACK DISCOMFORT PER DEC. VITALS STABLE. TURNED Q 2 HOURS WHEN PT WILL ALLOW IT. ENCOURAGED PT TO MOVE AND EAT/DRINK MORE TO PREVENT COMPLICATIONS. PT SEEMS APATHETIC ABOUT HIS MEDICAL DISORDER AND CARE. WHEN ASKED ABOUT WHAT MD SAID YESTERDAY DURING ROUNDS OR WHAT WERE HIS TEST RESULTS, HE REMARKED, "I DON'T KNOW." ENCOURAGED HIM TO BE MORE PRO-ACTIVE IN HIS CARE. ROLLE PATENT AND DRAINING WELL.
--- NOTE | 2019-09-22 16:38 | NUR ---
TAX SERVICES INTERN CONSULT AND PSYCH CONSULT PLACED JASWANT DEE (FACE SHEET TUBED TO Sindhu)
--- NOTE | 2019-09-22 17:35 | NUR ---
SHIFT SUMMARY FLAT AFFECT; PAIN/ANXIETY/WITHDRAWAL MEDS GIVEN THROUGHOUT DAY. TREMULOUS WITH CLOUDED SENSORIUM AND AUDITORY HALLUCINATIONS. THIS P.M. PT STATED "I NEED TO LEAVE NOW BECAUSE THEY ARE KICKING ME OUT" PUT ON HIS CLOSE AND STATED "I'M LEAVING NOW"; ENCOURAGED TO STAY FOR CONTINUED TREATMENT. APPEARS TO BE DETOXING. ANSWERS QUESTIONS WITH ONLY YES OR NO ANSWERS. APPEARS DEPRESSED. STEROID THERAPY FOR PROSTATITIS. AWAITING SOCIAL SERVICE AND PSYCH CONSULT.
--- NOTE | 2019-09-22 22:24 | NUR ---
Pt pulled half of elizabeth line at shift change, day shift RN added a new bag to it. Pt kept messing with the elizabeth bag, he kept getting up. He is very unsteady. He kept trying to get dressed to leave. He is very confused and unable to understand he needs to leave the Elizabeth Cath. stuff alone. I have been very busy tonight, but I have been in his room 6 times, a float MEDICINAL CHEMIST helped to be in his room a few times, and the RN also was in and out of his room to monitor him and keep him from removing his elizabeth. He didn't eat any of his dinner. A urin output was not recorded from his elizabeth bag a shift change because it was on the floor and the RN tossed the bag into the trash.
--- NOTE | 2019-09-23 06:21 | NUR ---
Shift Summary Patient was very agitated and restless until approximately 0530. He required Ativan for high CIWA score almost hourly per EMAR after midnight. [place] vest was applied at 0400 as ordered, and this did help to secure him in bed without complications. He seems to be having visual and auditory hallucinations, and is disoriented to place and situation. He no appears alseep with RR 16 and maintaining sats on RA.
--- NOTE | 2019-09-23 13:08 | NUR ---
SPOKE TO DR MCCLELLAND ABOUT ROLLE DISCONTINUE ORDER, SHE VERBALLY CANCELED THIS, AND WE WILL READDRESS AND TRY BLADDER TRAINING AFTER ETOH WITHDRAWL
--- NOTE | 2019-09-23 19:25 | NUR ---
SHIFT SUMMARY EDMOND SLEEPING HEAVILY AT THE BEGINNING OF THE SHIFT FROM ATIVAN, BUT WOKE UP AND STARTING RAMPING UP DUE TO ETOH WITHDRAWL. GAVE HIM SEVERAL DOSES OF IV ATIVAN FOR SCORES RANGING FROM 11-22. WALKED ONCE WITH PT WITH GAIT BELT AND WALKER AND A01. COMPLAINS OF BACK PAIN, TYLENOL GIVEN. MULTIPLE ATTEMPTS TO GET OOB, BED ALARM ON, HOMA IN PLACE, CAMERA ON.
--- NOTE | 2019-09-23 23:06 | NUR ---
1929 PT VERY ANXIOUS AND ATTEMPTING TO CLIMB OOB AND PULL AT CATHETER; ATIVAN 2MG IVP GIVEN. 1999 PT STILL SLIGHTLY AGITATED AND UNABLE TO FOLLOW ANY SIMPLE VERBAL COMMANDS; HOMA VEST INTACT.
--- NOTE | 2019-09-24 04:09 | NUR ---
SHIFT SUMMARY: 64 Y/O MALE HAD VERY RESTLESS NIGHT FIRST 3/4 OF SHIFT WITH PATIENT REQUIRING FREQUENT NURSING STAFF REDIRECTION; PT WAS GIVEN ATIVAN 3 MG EVERY 1-2 HOURS WITH MINIMAL AFFECT AT TIMES; PT NEVER COMBATIVE; SPEECH GARBLED; ROLLE DRAINING TEA COLORED FLUID; HOMA RESTRAINTS MAITAINED; DENIES NAUSEA OR PAIN; BED ALARM APPLIED; BED LOW POSITION WITH CALL LIGHT AT SIDE.
--- NOTE | 2019-09-24 17:30 | NUR ---
HOMA MAK UNTIED FOR TRIAL PERIOD. PT NOT PULLING ON THE RESTRAINT, NO S&S OF WITHDRAWL PT STABLE AT THIS TIME. PAIN IS WELL MANAGED PER PT STATEMENT. NO ATIVAN GIVEN THIS SHIFT.
--- NOTE | 2019-09-24 18:00 | NUR ---
PT MORE ALERT AND STILL IN STABLE WITHDRAWL. HOMA MAK DC'Sindhu AT THIS TIME. PT TRANSFERED BACK TO BED. IS ABLE TO DEMONSTRATE HOW CALL LIGHT IS USED.
--- NOTE | 2019-09-24 19:35 | NUR ---
SHIFT SUMMARY- PT HAS HAD STABLE CIWAS T/O THE SHIFT SCORING 4-7. NO ATIVAN NEEDED, RESTRAINTS DC'D. PT WALKED WITH PHYSICAL THERAPY IN THE PAZ VERY BRIEFLY TODAY. PT HAD A BM THIS MORNING IN THE [facility]. ROLLE IN PLACE PATENT AND DRAINING AT THIS TIME.
--- NOTE | 2019-09-25 02:17 | NUR ---
09/24/19 PT RESTING COMFORTABLY IN BED; ABLE TO FOLLOW SIMPLE VERBAL COMMANDS. 09/25/19 RESTING COMFORTABLY IN BED;
--- NOTE | 2019-09-25 04:41 | NUR ---
SHIFT SUMMARY: 64 Y/O MALE RESTED COMFORTABLY ALL SHIFT WHILE UTILIZING CALL LIGHT FOR ASSISTANCE; C/O BACK PAIN 03/22 WITH NORCO 5/325MG PO X 1 GIVEN WITH RELIEF FELT; ROLLE DRAINING TEA COLORED FLUID; PT ALERT AND ORIENTED X2 AND ABLE TO FOLLOW VERY SIMPLE VERBAL COMMANDS; BED ALARM APPLIED, BED LOW POSITION WITH CALL LIGHT AT SIDE.
--- NOTE | 2019-09-25 17:44 | NUR ---
SHIFT SUMMARY- PT ALERT AND ORIENTED WITH THE CALL LIGHT IN REACH. PT HAS HAD C/O PAIN AND WAS MEDICATED PER EMAR. PT SEEMED PLEASED WITH THE RESULT OF THE PAIN MEDS THIS EVENING STATING THE PAIN WAS MUCH BETTER. PAIN PT C/O IS IN THE LOWER BACK. PT HAS A ROLLE THAT IS PATENT AND DRAINING DARK URINE, ROLLE IN FOR URINARY RETENTION. PT WALKED WITH THEARAPY TODAY AND SEEMS TO BE DOING MUCH BETTER COGNITIVELY CIWA SCORES HAVE BEEN 0 T/O THE SHIFT.
--- NOTE | 2019-09-26 02:27 | NUR ---
SHIFT SUMMARY: 64 Y/O MALE RESTED COMFORTABLY ALL SHIFT; CIWA 0; ALERT AND ORIENTED X 4, THOUGHT PROCESS IS ORGANIZED AND ABLE TO FOLLOW ALL SIMPLE VERBAL COMMANDS; ROLLE DRAINING LIGHT YELLOW FLUID; BED ALARM APPLIED, BED LOW POSITION WITH CALL LIGHT AT SIDE.
--- NOTE | 2019-09-26 06:18 | NUR ---
SHIFT SUMMARY: ASSUMED CARE OF PATIENT AT 0300 AFTER RECIEVING REPORT. PATIENT COMPLINED OF BACK PAIN 5/10 AND WAS GIVEN HYDROCODONE 1 TAB. PATIENT HAD GOOD EFFECT FROM MED. BED ALARM IS ON AND BED IS IN LOW POSITION.
--- NOTE | 2019-09-26 15:37 | NUR ---
SENT A FACE SHEET TO ER FOR DEREK CONSULT. CALLED TONEY IN ER TO BE SURE FACE SHEET IS PLACED IN DR REED'S BOX FOR CONSULTS.
--- NOTE | 2019-09-26 16:09 | NUR ---
SHIFT SUMMARY- PT ALERT AND ORIENTED X4. C/O PAIN T/O THE SHIFT MEDICATED PER EMAR. PT WALKED WITH THERAPY IN THE PAZ. IV NEEDED TO BE REMOVED FOR NORMAL ROTATION; SPOKE TO DR MCCLELLAND NEW ORDER FOR NO IV ACCESS NEEDED. PT HAS NO RECIEVED ANY IV MEDICATION IN 2 DAYS. CIWA SCORE IS 0.
--- NOTE | 2019-09-26 17:57 | NUR ---
PT TRANSFERED TO ROOM 362 TO ALLOW OPEN SCU BED. PT ALERT AND ORIENTED CIWA SCORE 0 FOR 2 DAYS NO RESTRAINTS NEEDED. NORMAL CARE ROUNDING MANAGES PT NEEDS WELL. PT MEDICATED WITH PAIN MEDICATION PRIOR TO TRANSFER.
--- NOTE | 2019-09-26 18:17 | NUR ---
RECEIVED PT TO RM 362 FROM 348. PT RESTING QUIETLY WATCHING TV. IN NO ACUTE DISTRESS. DENIED NEEDS. ASSISTED WITH BS TABLE WHEN DINNER ARRIVED. MEDICATED FOR C/O BACK PAIN PRIOR TO TX. PT REPORTED MEDICATION STARTING TO WORK. CALL LT IN REACH.
--- NOTE | 2019-09-27 04:32 | NUR ---
09/27/19 0430 PT SLEEPING WELL THIS SHIFT AFTER PM MEDS INCLUDING PAIN MED GIVEN. VITALS STABLE THIS AM. NO C/O S/S OR DISCOMFORT AT THIS TIME. VERY QUIET AND WITHDRAWN THIS SHIFT.
[2019-09-27 05:00] LABS: BASOPHILS ABSOLUTE AUTO 0.05 K/mm3 (0.00-0.23); BASOPHILS PERCENT AUTO 1 % (0-2); EOSINOPHILS ABSOLUTE AUTO 0.18 K/mm3 (0.00-0.68); EOSINOPHILS PERCENT AUTO 5 % (0-6); Hematocrit 45.8 % (37.0-53.0); Hemoglobin 15.3 g/dL (13.5-17.5); IMMATURE GRAN ABSOLUTE AUTO 0.04 K/mm3 (0.00-0.10); IMMATURE GRAN PERCENT AUTO 1 % (0-1); LYMPHOCYTES ABSOLUTE AUTO 2.05 K/mm3 (0.84-5.20); LYMPHOCYTES PERCENT AUTO 52 % (21-46); MONOCYTES ABSOLUTE AUTO 0.46 K/mm3 (0.16-1.47); MONOCYTES PERCENT AUTO 12 % (4-13); Mean Corpuscular HGB 32.7 pg (26.0-34.0); Mean Corpuscular HGB Conc 33.4 g/dL (31.5-36.5); Mean Corpuscular Volume 98 fL (80-100); Mean Platelet Volume 9.1 fL (9.1-12.4); NEUTROPHILS ABSOLUTE AUTO 1.16 K/mm3 (1.96-9.15); NEUTROPHILS PERCENT AUTO 29 % (41-73); Platelet Count 127 K/mm3 (150-400); RDW Coefficient Variation 12.8 % (11.7-14.2); RDW Standard Deviation 45.8 fL (35.1-46.3); Red Blood Cell Count 4.68 M/mm3 (4.30-5.90); White Blood Cell Count 3.94 K/mm3 (4.00-11.30)
[2019-09-27 05:18] LABS: Alanine Aminotransfer (ALT/SGP 41 U/L (12-78); Albumin, Blood 3.2 g/dL (3.4-5.0); Albumin/Globulin Ratio 0.9 (0.8-1.8); Alk Phos 56 U/L (50-136); Anion Gap 6 mmol/L (6-16); Aspartate Aminotrans (AST/SGOT 21 U/L (12-37); Bilirubin, Total 0.6 mg/dL (0.1-1.0); Blood Urea Nitrogen 25 mg/dL (8-24); Bun/Creatinine Ratio 29.8 (12.0-20.0); CO2, Blood 27 mmol/L (21-32); Calcium, Blood 9.5 mg/dL (8.5-10.1); Chloride, Blood 103 mmol/L (98-108); Creatinine, Blood 0.84 mg/dL (0.60-1.20); Globulin, Blood 3.6 g/dL (2.2-4.0); Glomerular Filtration Rate >60 (60-); Glucose, Blood 84 mg/dL (70-99); Potassium, Blood 4.1 mmol/L (3.5-5.5); Sodium, Blood 136 mmol/L (136-145); Total Protein, Blood 6.8 g/dL (6.4-8.2)
--- NOTE | 2019-09-27 08:05 | NUR ---
PT REQ PAIN MEDS FOR HIS BACK STATED 06/22 STATED HIS BACK HAS HURT FOR OVER A WEEK STATED HE HURT IT GETTING UP OUT OF BED MEDS GIVEN ALSO STATED HE HAS ONLY HAD ONE BM SINCE HE HAS BEEN HERE WILL GIVEN MEDS FOR BM ALSO ROLLE CATH DRAINING CL YELLOW
--- NOTE | 2019-09-27 10:24 | NUR ---
PT WORKED WITH PHYSICAL THERPAY STATED HE DID BECOME DIZZY RE WE AMB PT LATER TODAY
--- NOTE | 2019-09-27 10:51 | NUR ---
PT REFUSED TO SIGN AMA CALLED DR DE LEÓN SHE WAS PUTTING IN DISCHARGE ORDERS WE SPEAK OFFERED TO CALL S/S FOR PT PT DECLINED NOTIFIED ALENA SARAHI
[2019-10-31] MEDS ORDERED: ACET325 PO (11:00)
[2019-10-31] MEDS ORDERED: Vsl#3 Capsule1 EACH PO (11:01)
[2019-10-31] MEDS ORDERED: AMOCLA875 PO (11:01)
[2019-10-31] MEDS ORDERED: B-1100 M1 PO (11:01)
== END 2019-09-27 10:52 | disposition left against medical advice (07) | DRG 700 ==
LOC: ER 15:48 → MEDS 19:20
PROVIDERS: Emergency Medicine; Internal Medicine; ADMIT Internal Medicine
DX: T83.511A Infection and inflammatory reaction due to indwelling urethral catheter, initial encounter (principal); N39.0 Urinary tract infection, site not specified; N40.0 Benign prostatic hyperplasia without lower urinary tract symptoms; I10 Essential (primary) hypertension; D69.6 Thrombocytopenia, unspecified; M54.5 Low back pain; E87.6 Hypokalemia; F10.20 Alcohol dependence, uncomplicated; F32.9 Major depressive disorder, single episode, unspecified; F03.90 Unspecified dementia, unspecified severity, without behavioral disturbance, psychotic disturbance, mood disturbance, and anxiety; G62.9 Polyneuropathy, unspecified; F17.220 Nicotine dependence, chewing tobacco, uncomplicated; T69.029D Immersion foot, unspecified foot, subsequent encounter; Z59.0 Homelessness
CPT/HCPCS: 36415; 72158; 74177; 80053; 81001; 83605; 83735; 84153; 85025; 85027; 85651; 87077; 87086; 87186; 96365; 96375; 97110; 97116; 97162; 97166; 97530; 99285-25; A9270; A9270-GY; A9577; G0515; J0696; J1100; J1170; J1650; J1885; J1956; J2060; J2270; J2405; J3010; J3360; J3480; J7030; J7050; Q9967

== ENCOUNTER → 2019-10-03 | Outpatient (CLI) | payer MEDICARE ==
[~2019-10-03] MED LIST changes: +ACET325 PO; +AMOCLA875 PO; +B-1100 M1 PO; +LIDO700A20 TOP; +Lasix20 MG PO; +Vsl#3 Capsule1 EACH PO
== END | disposition home or self-care (01) ==
LOC: LAB EV 16:15 → LAB SHORT 16:15
DX: R31.9 Hematuria, unspecified (principal)
CPT/HCPCS: 87086

== ENCOUNTER 2019-10-04 00:38 | Emergency (ER) | payer MEDICARE ==
[~2019-10-04] VITALS: Ht 185.4 cm; Wt 106.6 kg
[~2019-10-04 00:38] MED LIST changes: -ACET325 PO; -AMOCLA875 PO; -B-1100 M1 PO; -LIDO700A20 TOP; -Lasix20 MG PO; -Vsl#3 Capsule1 EACH PO
[2019-10-04] MEDS ORDERED: LIDO700A20 TOP (01:34)
[2019-10-31] MEDS ORDERED: ACET325 PO (11:00)
[2019-10-31] MEDS ORDERED: AMOCLA875 PO (11:01)
[2019-10-31] MEDS ORDERED: B-1100 M1 PO (11:01)
[2019-10-31] MEDS ORDERED: Vsl#3 Capsule1 EACH PO (11:01)
== END 2019-10-04 02:02 | disposition home or self-care (01) ==
LOC: ER 00:38
DX: G89.29 Other chronic pain (principal); M54.5 Low back pain; F10.129 Alcohol abuse with intoxication, unspecified; I10 Essential (primary) hypertension; F17.220 Nicotine dependence, chewing tobacco, uncomplicated
CPT/HCPCS: 74176; 81015; 96372; 99283-25; J1885

== ENCOUNTER 2019-10-06 18:30 | Emergency (ER) | payer MEDICARE ==
[~2019-10-06] VITALS: Ht 185.4 cm; Wt 114.0 kg
[~2019-10-06 18:30] MED LIST changes: +LIDO700A20 TOP
[2019-10-06 19:20] LABS: Calcium, Ionized (POC) 1.08 mmol/L (1.10-1.46); Chloride (POC) 96 mmol/L (98-108); Creatinine (POC) 1.4 mg/dL (0.8-1.3); Glucose (ISTAT POC) 87 mg/dL (70-99); Potassium (POC) 3.5 mmol/L (3.5-5.5); Sodium (POC) 135 mmol/L (135-148); Total CO2 (POC) 24 mmol/L (21-32)
[2019-10-06 19:30] LABS: Source, Urine Catheter
[2019-10-06 19:35] LABS: Bilirubin, Urine Neg (Neg); Blood, Urine 5+ (Neg); Glucose Qualitative, Urine Neg (Neg); Ketones, Urine Neg (Neg); Leukocyte Esterase, Urine Neg (Neg); Nitrite, Urine Neg (Neg); Protein, Urine Neg (Neg); Specific Gravity, Urine 1.005 (1.003-1.022); Urobilinogen, Urine NORM (Normal)
[2019-10-06 19:44] LABS: Appearance, Urine Clear (Clear); Color, Urine Yellow (P-Yellow)
[2019-10-06 19:45] LABS: Bacteria Few /hpf; Red Blood Cells, Urine 0-2 /hpf (0-2); Squamous Epithelial Cells Not Seen /hpf (Few); White Blood Cells, Urine 0-2 /hpf (0-5)
[2019-10-31] MEDS ORDERED: ACET325 PO (11:00)
[2019-10-31] MEDS ORDERED: B-1100 M1 PO (11:01)
[2019-10-31] MEDS ORDERED: Vsl#3 Capsule1 EACH PO (11:01)
[2019-10-31] MEDS ORDERED: AMOCLA875 PO (11:01)
== END 2019-10-06 20:16 | disposition home or self-care (01) ==
LOC: ER 18:30
PROVIDERS: Emergency Medicine
DX: T83.091A Other mechanical complication of indwelling urethral catheter, initial encounter (principal); N40.1 Benign prostatic hyperplasia with lower urinary tract symptoms; R33.8 Other retention of urine; I10 Essential (primary) hypertension; Z79.899 Other long term (current) drug therapy
CPT/HCPCS: 51702; 51798; 80047; 81001; 85014; 99283-25

== ENCOUNTER 2019-10-08 19:06 | Emergency (ER) | payer MEDICARE ==
[~2019-10-08] VITALS: Ht 185.4 cm; Wt 111.1 kg
[2019-10-08 22:37] LABS: Source, Urine Clean Catch
[2019-10-08 22:41] LABS: Bilirubin, Urine Neg (Neg); Blood, Urine Neg (Neg); Glucose Qualitative, Urine Neg (Neg); Ketones, Urine Neg (Neg); Leukocyte Esterase, Urine 1+ (Neg); Nitrite, Urine Neg (Neg); Protein, Urine Neg (Neg); Urobilinogen, Urine NORM (Normal)
[2019-10-08 22:48] LABS: Appearance, Urine Clear (Clear); Bacteria Rare /hpf; Color, Urine Yellow (P-Yellow); Red Blood Cells, Urine Not Seen /hpf (0-2); Squamous Epithelial Cells Not Seen /hpf (Few)
[2019-10-08 22:49] LABS: BASOPHILS ABSOLUTE AUTO 0.06 K/mm3 (0.00-0.23); BASOPHILS PERCENT AUTO 1 % (0-2); EOSINOPHILS ABSOLUTE AUTO 0.26 K/mm3 (0.00-0.68); EOSINOPHILS PERCENT AUTO 6 % (0-6); Hematocrit 41.3 % (37.0-53.0); Hemoglobin 14.1 g/dL (13.5-17.5); IMMATURE GRAN ABSOLUTE AUTO 0.02 K/mm3 (0.00-0.10); IMMATURE GRAN PERCENT AUTO 0 % (0-1); LYMPHOCYTES ABSOLUTE AUTO 1.71 K/mm3 (0.84-5.20); LYMPHOCYTES PERCENT AUTO 36 % (21-46); MONOCYTES ABSOLUTE AUTO 0.56 K/mm3 (0.16-1.47); MONOCYTES PERCENT AUTO 12 % (4-13); Mean Corpuscular HGB Conc 34.1 g/dL (31.5-36.5); Mean Corpuscular Volume 97 fL (80-100); Mean Platelet Volume 8.8 fL (9.1-12.4); NEUTROPHILS ABSOLUTE AUTO 2.11 K/mm3 (1.96-9.15); NEUTROPHILS PERCENT AUTO 45 % (41-73); Platelet Count 120 K/mm3 (150-400); RDW Coefficient Variation 13.2 % (11.7-14.2); RDW Standard Deviation 46.3 fL (35.1-46.3); Red Blood Cell Count 4.27 M/mm3 (4.30-5.90); White Blood Cell Count 4.72 K/mm3 (4.00-11.30)
[2019-10-08 23:06] LABS: Alanine Aminotransfer (ALT/SGP 37 U/L (12-78); Albumin, Blood 3.8 g/dL (3.4-5.0); Alk Phos 83 U/L (50-136); Anion Gap 10 mmol/L (6-16); Aspartate Aminotrans (AST/SGOT 31 U/L (12-37); Blood Urea Nitrogen 9 mg/dL (8-24); Bun/Creatinine Ratio 10.7 (12.0-20.0); CO2, Blood 25 mmol/L (21-32); Chloride, Blood 101 mmol/L (98-108); Creatinine, Blood 0.84 mg/dL (0.60-1.20); Globulin, Blood 3.9 g/dL (2.2-4.0); Glomerular Filtration Rate >60 (60-); Glucose, Blood 81 mg/dL (70-99); Potassium, Blood 3.7 mmol/L (3.5-5.5); Sodium, Blood 136 mmol/L (136-145); Total Protein, Blood 7.7 g/dL (6.4-8.2)
[2019-10-31] MEDS ORDERED: ACET325 PO (11:00)
[2019-10-31] MEDS ORDERED: AMOCLA875 PO (11:01)
[2019-10-31] MEDS ORDERED: Vsl#3 Capsule1 EACH PO (11:01)
[2019-10-31] MEDS ORDERED: B-1100 M1 PO (11:01)
== END 2019-10-08 23:49 | disposition home or self-care (01) ==
LOC: ER 19:06
PROVIDERS: Emergency Medicine
DX: R33.9 Retention of urine, unspecified (principal); F17.220 Nicotine dependence, chewing tobacco, uncomplicated; N39.0 Urinary tract infection, site not specified
CPT/HCPCS: 36415; 51702; 51798; 80053; 81001; 85025; 87077; 87086; 87186; 96374-59; 99283-25; J2270

== ENCOUNTER 2019-10-28 14:42 | Inpatient (IN) | payer MEDICARE ==
[~2019-10-28] VITALS: Ht 185.4 cm; Wt 111.1 kg
[2019-10-28 15:27] LABS: Source, Urine Clean Catch
[2019-10-28 15:38] LABS: Appearance, Urine Bloody (Clear); Bilirubin, Urine 1+ (Neg); Blood, Urine 5+ (Neg); Color, Urine Brown (P-Yellow); Glucose Qualitative, Urine Neg (Neg); Ketones, Urine 3+ (Neg); Leukocyte Esterase, Urine 1+ (Neg); Nitrite, Urine Pos (Neg); Protein, Urine 4+ (Neg); Specific Gravity, Urine 1.025 (1.003-1.022); Urobilinogen, Urine 1+ (Normal)
[2019-10-28 15:40] LABS: BASOPHILS ABSOLUTE AUTO 0.06 K/mm3 (0.00-0.23); BASOPHILS PERCENT AUTO 1 % (0-2); Bacteria Many /hpf; EOSINOPHILS ABSOLUTE AUTO 0.02 K/mm3 (0.00-0.68); EOSINOPHILS PERCENT AUTO 0 % (0-6); Hematocrit 50.1 % (37.0-53.0); Hemoglobin 16.9 g/dL (13.5-17.5); IMMATURE GRAN ABSOLUTE AUTO 0.01 K/mm3 (0.00-0.10); IMMATURE GRAN PERCENT AUTO 0 % (0-1); LYMPHOCYTES ABSOLUTE AUTO 0.96 K/mm3 (0.84-5.20); LYMPHOCYTES PERCENT AUTO 17 % (21-46); MONOCYTES ABSOLUTE AUTO 0.57 K/mm3 (0.16-1.47); MONOCYTES PERCENT AUTO 10 % (4-13); Mean Corpuscular HGB Conc 33.7 g/dL (31.5-36.5); Mean Corpuscular Volume 101 fL (80-100); Mean Platelet Volume 8.3 fL (9.1-12.4); Mucus Mod (0-Heavy); NEUTROPHILS ABSOLUTE AUTO 3.94 K/mm3 (1.96-9.15); NEUTROPHILS PERCENT AUTO 71 % (41-73); RDW Coefficient Variation 15.4 % (11.7-14.2); RDW Standard Deviation 57.5 fL (35.1-46.3); Red Blood Cell Count 4.97 M/mm3 (4.30-5.90); Red Blood Cells, Urine TNTC /hpf (0-2); Squamous Epithelial Cells Few /hpf (Few); White Blood Cell Count 5.56 K/mm3 (4.00-11.30); White Blood Cells, Urine 25-50 /hpf (0-5)
[2019-10-28 15:41] LABS: Platelet Count 99 K/mm3 (150-400)
[2019-10-28 16:06] LABS: Alanine Aminotransfer (ALT/SGP 34 U/L (12-78); Albumin, Blood 4.3 g/dL (3.4-5.0); Alk Phos 87 U/L (50-136); Anion Gap 14 mmol/L (6-16); Aspartate Aminotrans (AST/SGOT 33 U/L (12-37); Bilirubin, Total 1.2 mg/dL (0.1-1.0); Blood Urea Nitrogen 8 mg/dL (8-24); Bun/Creatinine Ratio 9.8 (12.0-20.0); CO2, Blood 21 mmol/L (21-32); Calcium, Blood 9.5 mg/dL (8.5-10.1); Chloride, Blood 103 mmol/L (98-108); Creatinine, Blood 0.82 mg/dL (0.60-1.20); Globulin, Blood 4.4 g/dL (2.2-4.0); Glomerular Filtration Rate >60 (60-); Glucose, Blood 84 mg/dL (70-99); Potassium, Blood 3.7 mmol/L (3.5-5.5); Sodium, Blood 138 mmol/L (136-145); Total Protein, Blood 8.7 g/dL (6.4-8.2)
[2019-10-28 17:13] LABS: Source, Urine Catheter
[2019-10-28 17:28] LABS: Bilirubin, Urine Neg (Neg); Blood, Urine 5+ (Neg); Glucose Qualitative, Urine Neg (Neg); Ketones, Urine 4+ (Neg); Leukocyte Esterase, Urine 3+ (Neg); Nitrite, Urine Pos (Neg); Protein, Urine 3+ (Neg); Urobilinogen, Urine 1+ (Normal); pH, Urine 6.5 (5.0-8.0)
[2019-10-28 17:39] LABS: Appearance, Urine Cloudy (Clear); Color, Urine Yellow (P-Yellow)
[2019-10-28 17:42] LABS: Red Blood Cells, Urine TNTC /hpf (0-2); Squamous Epithelial Cells Not Seen /hpf (Few); White Blood Cells, Urine TNTC /hpf (0-5)
[2019-10-28 17:43] LABS: Bacteria Mod /hpf
[2019-10-29 01:12] LABS: BASOPHILS ABSOLUTE AUTO 0.04 K/mm3 (0.00-0.23); BASOPHILS PERCENT AUTO 1 % (0-2); EOSINOPHILS ABSOLUTE AUTO 0.12 K/mm3 (0.00-0.68); EOSINOPHILS PERCENT AUTO 3 % (0-6); Hematocrit 42.1 % (37.0-53.0); Hemoglobin 14.3 g/dL (13.5-17.5); IMMATURE GRAN ABSOLUTE AUTO 0.01 K/mm3 (0.00-0.10); IMMATURE GRAN PERCENT AUTO 0 % (0-1); LYMPHOCYTES ABSOLUTE AUTO 1.18 K/mm3 (0.84-5.20); LYMPHOCYTES PERCENT AUTO 30 % (21-46); MONOCYTES PERCENT AUTO 13 % (4-13); Mean Corpuscular HGB 33.9 pg (26.0-34.0); Mean Corpuscular Volume 100 fL (80-100); Mean Platelet Volume 8.3 fL (9.1-12.4); NEUTROPHILS ABSOLUTE AUTO 2.07 K/mm3 (1.96-9.15); NEUTROPHILS PERCENT AUTO 53 % (41-73); Platelet Count 74 K/mm3 (150-400); RDW Coefficient Variation 15.1 % (11.7-14.2); RDW Standard Deviation 55.7 fL (35.1-46.3); Red Blood Cell Count 4.22 M/mm3 (4.30-5.90); White Blood Cell Count 3.92 K/mm3 (4.00-11.30)
[2019-10-29 01:26] LABS: Anion Gap 6 mmol/L (6-16); Blood Urea Nitrogen 8 mg/dL (8-24); Bun/Creatinine Ratio 12.3 (12.0-20.0); CO2, Blood 28 mmol/L (21-32); Calcium, Blood 8.3 mg/dL (8.5-10.1); Chloride, Blood 102 mmol/L (98-108); Creatinine, Blood 0.65 mg/dL (0.60-1.20); Glomerular Filtration Rate >60 (60-); Glucose, Blood 117 mg/dL (70-99); Potassium, Blood 3.4 mmol/L (3.5-5.5); Sodium, Blood 136 mmol/L (136-145)
--- NOTE | 2019-10-29 05:25 | NUR ---
SHIFT SUMMARY RECIEVED REPORT FROM DENNIS CUNNINGHAM, ED. ARRIVED TO MEDICAL FLOOR @ 210. MODERATE ASSISTANCE NEEDED FOR TRANSFER FROM STRETCHER TO BED. ORIENTED TO ROOM AND CALL SYSTEM. A/O, ABLE TO MAKE NEEDS KNOWN. COOPERATIVE WITH CARE. ANSWERS QUESTIONS APPROPRIATELY. ROLLE REPLACED IN ED; PATENT AND DRAINING TO GRAVITY. STATES HAD PREVIOUS ROLLE IN PLACE R/T RETENTION FROM PROSTATE ISSUES. CURRENTLY YEILDING YELLOW/ORANGE URINE THAT IS CLOUDY. VSS/AFEBRILE. RECIEVED 3L OF LR. CURRENTLY RUNNING K+ RIDER WITH NS. APPEARED TO REST OFF AND ON. REMAINS PAINFUL TO THE GROIN WHICH APPEARS VERY ERYTHEMATOUS AND SLIGHTLY SWOLLEN. NEW PAIN ORDERS FROM ON-CALL; PATIENT STATES THAT THEY HELP. NO OTHER ACUTE CHANGES NOTED. WCTM. BED IN LOWEST POSITION. CALL LIGHT WITHIN REACH. REPORT TO TIMOTHY CUNNINGHAM.
--- NOTE | 2019-10-29 11:54 | NUR ---
CALLED DR HARMON- PT POTASSIUM WAS 3.4 THIS AM. PT RECIEVED 40 MEQ OF IV POTASSIUM AFTER THE LAB DRAW. NEW ORDER FOR 40MEQ PO POTASSIUM. PER DR HARMON CANCEL ORDER FOR PO POTASSIUM. PT WILL NOT RECIEVE THIS DOSE.
--- NOTE | 2019-10-29 18:26 | NUR ---
ON CARE ROUNDING PT STATED HE WAS NOT HUNGRY. AFTER MORE QUESTIONS HE STATED HE WAS EXPERIENCING NAUSEA, MEDICATED WITH ZOFRAN, CIWA SCORE RE-EVALUATED PT CIWA SCORE IS 8 AT THIS TIME. PT STATED THE LIGHTS ARE BRIGHTER NOW (IRRITATING) BP IS ELEVATED MILD SWEAL PALPABLE ON THE FOREHEAD. PT STATED PAIN 8/10. WILL MEDICATE PER EMAR. CALLED DR HARMON AND LEFT A MESSAGE NO PRN BP MEDICATION SBP GREATER THAN 170 AT THIS TIME.
--- NOTE | 2019-10-29 19:54 | NUR ---
SHIFT SUMMARY- PT RECIEVED A DOSE OF LIBRIUM THIS EVENING AND APPEARS TO BE FEELING BETTER AFTER PAIN MEDICATION AND LIBRIUM WERE GIVEN TOGETHER. PT NAUSEA RESOLVED WITH IV ZOFRAN AND THE SHAKES HAVE REDUCED IN SEVERITY. PT ALERT AND ORIENTED. STATES PAIN 5/10 AT THIS TIME.
--- NOTE | 2019-10-30 05:01 | NUR ---
SHIFT SUMMARY A/O, ABLE TO MAKE NEEDS KNOWN. COOPERATIVE WITH CARE. ANSWERS QUESTIONS APPROPRIATELY. C/O PAIN/DISCOMFORT TO ABDOMEN/PENIS; MEDICATED PER EMAR. APPEARED TO REST OFF/ON T/O SHIFT. NO ACUTE CHANGES NOTED OVERNIGHT. ROLLE PATENT AND DRAINING TO GRAVITY. BED IN LOWEST POSITION. CALL LIGHT WITHIN REACH. WCTM. REPORT TO ONCOMING RN.
[2019-10-30 06:14] LABS: BASOPHILS ABSOLUTE AUTO 0.02 K/mm3 (0.00-0.23); BASOPHILS PERCENT AUTO 1 % (0-2); EOSINOPHILS ABSOLUTE AUTO 0.18 K/mm3 (0.00-0.68); EOSINOPHILS PERCENT AUTO 6 % (0-6); Hematocrit 45.2 % (37.0-53.0); Hemoglobin 15.2 g/dL (13.5-17.5); IMMATURE GRAN PERCENT AUTO 0 % (0-1); LYMPHOCYTES ABSOLUTE AUTO 0.93 K/mm3 (0.84-5.20); LYMPHOCYTES PERCENT AUTO 30 % (21-46); MONOCYTES ABSOLUTE AUTO 0.41 K/mm3 (0.16-1.47); MONOCYTES PERCENT AUTO 13 % (4-13); Mean Corpuscular HGB 33.6 pg (26.0-34.0); Mean Corpuscular HGB Conc 33.6 g/dL (31.5-36.5); Mean Corpuscular Volume 100 fL (80-100); Mean Platelet Volume 8.3 fL (9.1-12.4); NEUTROPHILS ABSOLUTE AUTO 1.56 K/mm3 (1.96-9.15); NEUTROPHILS PERCENT AUTO 50 % (41-73); Platelet Count 66 K/mm3 (150-400); RDW Coefficient Variation 14.9 % (11.7-14.2); RDW Standard Deviation 55.4 fL (35.1-46.3); Red Blood Cell Count 4.53 M/mm3 (4.30-5.90)
[2019-10-30 06:32] LABS: Albumin, Blood 3.3 g/dL (3.4-5.0); Anion Gap 7 mmol/L (6-16); Blood Urea Nitrogen 8 mg/dL (8-24); Bun/Creatinine Ratio 10.2 (12.0-20.0); CO2, Blood 26 mmol/L (21-32); Calcium, Blood 8.9 mg/dL (8.5-10.1); Chloride, Blood 102 mmol/L (98-108); Creatinine, Blood 0.78 mg/dL (0.60-1.20); Glomerular Filtration Rate >60 (60-); Glucose, Blood 85 mg/dL (70-99); Magnesium, Blood 2.3 mg/dL (1.6-2.4); Phosphorus, Blood 3.1 mg/dL (2.5-4.9); Potassium, Blood 3.6 mmol/L (3.5-5.5); Sodium, Blood 135 mmol/L (136-145)
--- NOTE | 2019-10-30 17:57 | NUR ---
SHIFT SUMMARY VISITED PT THIS MORNING AND EXPLAINED TO PT SHE WAS PLANNING TO DISCHARGE HIM TOMORROW. APPROX 45 MIN. LATER PT FOUND IN ROOM GETTING DRESSED AND PUTTING HIS LEG BAG ON. HE HAD CUT THE CATHETER BAG TUBING TO MAKE A LONGER TUBE TO REACH LEG BAG WITH A POCKET KNIFE. SAT DOWN AND SPOKE WITH PT. HE APPEARED ANXIOUS AND UPSET. PT REPORTED HE WAS TRYING TO GET READY TO GO FOR TOMORROW. REPORTED FEELINGS OF PARANOIA WHILE ON THE STREET. STATES HISTORICALLY HE HAS BEEN ON MEDS TO HELP HIS PARANOIA BUT UNABLE TO FOLLOW DUE TO BEING HOMELESS. STATES AT NIGHT "THE BAD GROUP OF GUYS ARE OUT TO KILL ME" ESPECIALLY AT NIGHT. WHEN [facility] DISCUSSED WITH HIM HE SAID THEY COME THERE TOO. WAS ABLE TO TALK TO PT WHILE HE CALMED DOWN. TOOK A LIBRIUM WELL. CATHETER CHANGED BACK TO A NEW ROLLE BAG AND DISCUSSED CONCERN FOR PT USING UNCLEAN TOOLS TO WORK ON HIS CATHETER AND RISKS FOR INFECTION. HAS BEEN CALM THE REMAINDER OF THE DAY BUT STILL HAS INCREASED TREMORS FROM THIS MORNING. NO REDNESS NOTED TO GROIN AREA.
--- NOTE | 2019-10-31 05:40 | NUR ---
SUMMARY: A/OX4, SBA IN ROOM AND CALLS APPROPRIATELY FOR ASSIST. HE'S NERVOUS RE: POSSIBLE D/C TODAY D/T BEING HOMELESS W/CHRONIC INDWELLING ROLLE. CATHETER IS PATENT AND DRAINING BUT HE WAS ADMITTED W/UROSEPSIS SO HIS CONCERNS ABOUT "BEING BACK ON STREETS" ARE HEIGHTENED. ETOH W/D ALSO SEEM TO BE GETTING WORSE AT THIS TIME. HIS CIWAS ARE NOW 9-10 T/O THE NOCTE D/T TREMORS, ANXIETY, SWEATING, DAVILA AND SLIGHT NAUSEA THAT COMES AND GOES. LIBRIUM 25MG PO PRN RECIEVED X2 DOSES THIS SHIFT FOR GOOD AFFECT. PT WILL LIKELY BE UNABLE TO SAFELY DETOX IF DC'D W/O PRN MEDS D/T INABILITY TO AFFORD ETOH WHEN HE LEAVES. LOW ABDO, GROIN AND PENIS PAIN PERSIST W/PERCOCET RECIEVED X2 FOR TOLERABLE RELIEF AND HE WAS ABLE TO SLEEP OFF/ON T/O NOCTE . NO ACUTE CHANGES, VSS AND AFEBRILE. WCTM AND REPORT TO DAY RN.
[2019-10-31] MEDS ORDERED: ACET325 PO ×2 (11:00)
[2019-10-31] MEDS ORDERED: B-1100 M1 PO ×2 (11:01)
[2019-10-31] MEDS ORDERED: Vsl#3 Capsule1 EACH PO ×2 (11:01)
[2019-10-31] MEDS ORDERED: AMOCLA875 PO ×2 (11:01)
--- NOTE | 2019-10-31 11:55 | NUR ---
DISCHARGE NOTE. PATIENT IS VERY WITHDRAWN. HE IS WALKING IN THE ROOM. NO CIWA ISSUES NOTED. PATIENT DID SIGN DISCHARGE PAPERS. NO QUESTIONS AT TIME OF DISCHARGE. PATIENT SWITCHED TO LEG BAG. WALKED OUT BY AID.
== END 2019-10-31 11:56 | disposition home or self-care (01) | DRG 699 ==
LOC: ER 14:42 → MEDS 19:22
PROVIDERS: Emergency Medicine; Internal Medicine; Nurse Practitioner Acute Care; Physician Assistant; ADMIT Internal Medicine
DX: T83.511A Infection and inflammatory reaction due to indwelling urethral catheter, initial encounter (principal); F10.230 Alcohol dependence with withdrawal, uncomplicated; N30.90 Cystitis, unspecified without hematuria; B96.89 Other specified bacterial agents as the cause of diseases classified elsewhere; I10 Essential (primary) hypertension; D69.49 Other primary thrombocytopenia; N40.0 Benign prostatic hyperplasia without lower urinary tract symptoms; E87.6 Hypokalemia; Z59.0 Homelessness; B95.2 Enterococcus as the cause of diseases classified elsewhere; F17.220 Nicotine dependence, chewing tobacco, uncomplicated; Z66 Do not resuscitate
CPT/HCPCS: 36415; 51702; 71046; 73562-RT; 74177; 80048; 80053; 80069; 81001; 83605; 83690; 83735; 85025; 87040; 87077; 87086; 87186; 93005; 93010; 96361-59; 96365-59; 96367-59; 97110; 97116; 97162; 99285-25; A9270; J0696; J1580; J2405; J3370; J3411; J3475; J3480; J7042; J7050; J7120; Q9967

== ENCOUNTER 2019-11-02 21:22 | Emergency (ER) | payer MEDICARE ==
[~2019-11-02] VITALS: Ht 185.4 cm; Wt 112.5 kg
[~2019-11-02 21:22] MED LIST changes: +ACET325 PO; +AMOCLA875 PO; +B-1100 M1 PO; +Vsl#3 Capsule1 EACH PO
== END 2019-11-03 | disposition home or self-care (01) ==
LOC: ER 21:22
DX: M17.11 Unilateral primary osteoarthritis, right knee (principal); I10 Essential (primary) hypertension; D69.6 Thrombocytopenia, unspecified; F17.220 Nicotine dependence, chewing tobacco, uncomplicated; Z79.899 Other long term (current) drug therapy
CPT/HCPCS: 73560-RT; 99283-25

== ENCOUNTER 2019-11-06 12:10 | Emergency (ER) | payer MEDICARE ==
[~2019-11-06] VITALS: Ht 185.4 cm; Wt 111.1 kg
[2019-11-06] MEDS ORDERED: Lasix20 MG PO (14:34)
== END 2019-11-06 15:20 | disposition home or self-care (01) ==
LOC: ER 12:10
DX: M79.661 Pain in right lower leg (principal); I10 Essential (primary) hypertension; F17.220 Nicotine dependence, chewing tobacco, uncomplicated; Z59.0 Homelessness; Z79.899 Other long term (current) drug therapy
CPT/HCPCS: 93971; 99283-25

== ENCOUNTER 2019-12-09 19:10 | Emergency (ER) | payer MEDICARE ==
[~2019-12-09] VITALS: Ht 185.4 cm; Wt 111.6 kg
[~2019-12-09 19:10] MED LIST changes: +Lasix20 MG PO
[2019-12-09 20:19] LABS: Source, Urine Catheter
[2019-12-09 20:25] LABS: Bilirubin, Urine Neg (Neg); Blood, Urine 4+ (Neg); Glucose Qualitative, Urine Neg (Neg); Ketones, Urine Neg (Neg); Leukocyte Esterase, Urine 3+ (Neg); Nitrite, Urine Pos (Neg); Protein, Urine 2+ (Neg); Specific Gravity, Urine 1.025 (1.003-1.022); Urobilinogen, Urine NORM (Normal)
[2019-12-09 20:31] LABS: Appearance, Urine Hazy (Clear); Color, Urine Yellow (P-Yellow)
[2019-12-09 20:34] LABS: White Blood Cells, Urine TNTC /hpf (0-5)
[2019-12-09 20:35] LABS: Squamous Epithelial Cells Rare /hpf (Few)
[2019-12-09 20:36] LABS: Bacteria Mod /hpf
[2019-12-09] MEDS ORDERED: Bactrim Ds Tab1 EACH PO (22:44)
== END 2019-12-09 23:00 | disposition home or self-care (01) ==
LOC: ER 19:10
PROVIDERS: Physician Assistant
DX: T83.098A Other mechanical complication of other urinary catheter, initial encounter (principal); N39.0 Urinary tract infection, site not specified; I10 Essential (primary) hypertension; Z79.899 Other long term (current) drug therapy
CPT/HCPCS: 51702; 51798; 81001; 87077; 87086; 87186; 99283-25; A9270-GY

== ENCOUNTER 2020-01-01 16:08 | Emergency (ER) | payer MEDICARE ==
[~2020-01-01] VITALS: Ht 185.4 cm; Wt 111.6 kg
[~2020-01-01 16:08] MED LIST changes: +Bactrim Ds Tab1 EACH PO
[2020-01-01 17:44] LABS: Source, Urine Catheter
[2020-01-01 17:53] LABS: Bilirubin, Urine Neg (Neg); Blood, Urine 5+ (Neg); Glucose Qualitative, Urine Neg (Neg); Ketones, Urine 1+ (Neg); Leukocyte Esterase, Urine 1+ (Neg); Nitrite, Urine Neg (Neg); Protein, Urine 3+ (Neg); Urobilinogen, Urine 1+ (Normal)
[2020-01-01 17:59] LABS: Appearance, Urine Hazy (Clear); Color, Urine Yellow (P-Yellow)
[2020-01-01 18:01] LABS: Red Blood Cells, Urine TNTC /hpf (0-2); Squamous Epithelial Cells Not Seen /hpf (Few)
[2020-01-01 18:04] LABS: Bacteria Few /hpf; Renal Epithelial Few /hpf (0-Rare)
== END 2020-01-01 18:00 | disposition home or self-care (01) ==
LOC: ER 16:08
PROVIDERS: Nurse Practitioner
DX: N39.9 Disorder of urinary system, unspecified (principal); F17.220 Nicotine dependence, chewing tobacco, uncomplicated
CPT/HCPCS: 51702; 51798; 81001; 87086; 99282-25

== ENCOUNTER → 2020-01-28 | Outpatient (CLI) | payer MEDICARE | END | disposition home or self-care (01) | LOC: LAB SHORT 11:53 → LAB EV 11:53 | DX: R33.9 Retention of urine, unspecified (principal) | CPT/HCPCS: 87077; 87086; 87186 ==

== ENCOUNTER 2020-02-03 08:49 | Inpatient (IN) | payer MEDICARE ==
[~2020-02-03] VITALS: Ht 185.4 cm; Wt 111.2 kg
[2020-02-03 09:28] LABS: BASOPHILS ABSOLUTE AUTO 0.05 K/mm3 (0.00-0.23); BASOPHILS PERCENT AUTO 1 % (0-2); EOSINOPHILS ABSOLUTE AUTO 0.15 K/mm3 (0.00-0.68); EOSINOPHILS PERCENT AUTO 4 % (0-6); Hematocrit 44.6 % (37.0-53.0); Hemoglobin 14.8 g/dL (13.5-17.5); IMMATURE GRAN ABSOLUTE AUTO 0.03 K/mm3 (0.00-0.10); IMMATURE GRAN PERCENT AUTO 1 % (0-1); LYMPHOCYTES ABSOLUTE AUTO 1.47 K/mm3 (0.84-5.20); LYMPHOCYTES PERCENT AUTO 40 % (21-46); MONOCYTES ABSOLUTE AUTO 0.37 K/mm3 (0.16-1.47); MONOCYTES PERCENT AUTO 10 % (4-13); Mean Corpuscular HGB 32.8 pg (26.0-34.0); Mean Corpuscular HGB Conc 33.2 g/dL (31.5-36.5); Mean Corpuscular Volume 99 fL (80-100); Mean Platelet Volume 8.2 fL (9.1-12.4); NEUTROPHILS ABSOLUTE AUTO 1.59 K/mm3 (1.96-9.15); NEUTROPHILS PERCENT AUTO 43 % (41-73); Platelet Count 100 K/mm3 (150-400); RDW Coefficient Variation 14.3 % (11.7-14.2); RDW Standard Deviation 51.3 fL (35.1-46.3); Red Blood Cell Count 4.51 M/mm3 (4.30-5.90); White Blood Cell Count 3.66 K/mm3 (4.00-11.30)
[2020-02-03 09:39] LABS: Alanine Aminotransfer (ALT/SGP 27 U/L (12-78); Albumin, Blood 3.3 g/dL (3.4-5.0); Albumin/Globulin Ratio 0.8 (0.8-1.8); Alk Phos 82 U/L (50-136); Anion Gap 9 mmol/L (6-16); Aspartate Aminotrans (AST/SGOT 23 U/L (12-37); Bilirubin, Total 0.4 mg/dL (0.1-1.0); Blood Urea Nitrogen 10 mg/dL (8-24); Bun/Creatinine Ratio 10.9 (12.0-20.0); CO2, Blood 23 mmol/L (21-32); Calcium, Blood 8.3 mg/dL (8.5-10.1); Chloride, Blood 109 mmol/L (98-108); Creatinine, Blood 0.91 mg/dL (0.60-1.20); Glomerular Filtration Rate >60 (60-); Glucose, Blood 121 mg/dL (70-99); Potassium, Blood 3.6 mmol/L (3.5-5.5); Sodium, Blood 141 mmol/L (136-145); Total Protein, Blood 7.3 g/dL (6.4-8.2); Troponin I <0.015 ng/mL (0.000-0.040)
[2020-02-03 09:48] LABS: Source, Urine Clean Catch
[2020-02-03 10:06] LABS: Blood, Urine 5+ (Neg); Glucose Qualitative, Urine Neg (Neg); Ketones, Urine 1+ (Neg); Leukocyte Esterase, Urine 3+ (Neg); Nitrite, Urine Pos (Neg); Protein, Urine 3+ (Neg); Specific Gravity, Urine 1.025 (1.003-1.022); Urobilinogen, Urine 1+ (Normal)
[2020-02-03 10:21] LABS: Bilirubin, Urine 1+ (Neg)
[2020-02-03 10:22] LABS: Appearance, Urine Hazy (Clear); Bacteria Mod /hpf; Color, Urine Amber (P-Yellow); Red Blood Cells, Urine 25-50 /hpf (0-2); Squamous Epithelial Cells Rare /hpf (Few); White Blood Cells, Urine 50-100 /hpf (0-5)
--- NOTE | 2020-02-03 16:36 | NUR ---
PT ARRIVED TO ROOM 337 VIA GURNEY AND LIFTING ASSISTANCE WAS REQUIRED. PT ORIENTED TO ROOM AND VS OBTAINED. PT DENIES PAIN/DISCOMFORT AT THIS TIME. CALL WILLIAMSON IN REACH AND BED IN LOWEST POSITION. WILL MONITOR
[2020-02-04 05:13] LABS: BASOPHILS ABSOLUTE AUTO 0.04 K/mm3 (0.00-0.23); BASOPHILS PERCENT AUTO 1 % (0-2); EOSINOPHILS ABSOLUTE AUTO 0.12 K/mm3 (0.00-0.68); EOSINOPHILS PERCENT AUTO 3 % (0-6); Hematocrit 42.7 % (37.0-53.0); IMMATURE GRAN ABSOLUTE AUTO 0.02 K/mm3 (0.00-0.10); IMMATURE GRAN PERCENT AUTO 1 % (0-1); LYMPHOCYTES ABSOLUTE AUTO 1.13 K/mm3 (0.84-5.20); LYMPHOCYTES PERCENT AUTO 29 % (21-46); MONOCYTES PERCENT AUTO 10 % (4-13); Mean Corpuscular HGB Conc 32.8 g/dL (31.5-36.5); Mean Corpuscular Volume 101 fL (80-100); Mean Platelet Volume 8.5 fL (9.1-12.4); NEUTROPHILS ABSOLUTE AUTO 2.17 K/mm3 (1.96-9.15); NEUTROPHILS PERCENT AUTO 56 % (41-73); Platelet Count 89 K/mm3 (150-400); RDW Coefficient Variation 14.4 % (11.7-14.2); RDW Standard Deviation 53.1 fL (35.1-46.3); Red Blood Cell Count 4.24 M/mm3 (4.30-5.90); White Blood Cell Count 3.88 K/mm3 (4.00-11.30)
[2020-02-04 05:40] LABS: Alanine Aminotransfer (ALT/SGP 22 U/L (12-78); Albumin, Blood 2.9 g/dL (3.4-5.0); Albumin/Globulin Ratio 0.8 (0.8-1.8); Alk Phos 73 U/L (50-136); Anion Gap 5 mmol/L (6-16); Aspartate Aminotrans (AST/SGOT 17 U/L (12-37); Bilirubin, Total 0.9 mg/dL (0.1-1.0); Blood Urea Nitrogen 9 mg/dL (8-24); Bun/Creatinine Ratio 10.7 (12.0-20.0); CO2, Blood 25 mmol/L (21-32); Chloride, Blood 109 mmol/L (98-108); Creatinine, Blood 0.84 mg/dL (0.60-1.20); Globulin, Blood 3.6 g/dL (2.2-4.0); Glomerular Filtration Rate >60 (60-); Glucose, Blood 94 mg/dL (70-99); Potassium, Blood 3.8 mmol/L (3.5-5.5); Sodium, Blood 139 mmol/L (136-145); Total Protein, Blood 6.5 g/dL (6.4-8.2); Troponin I <0.015 ng/mL (0.000-0.040)
--- NOTE | 2020-02-04 07:33 | NUR ---
SHIFT SUMMARY A/O, ABLE TO MAKE NEEDS KNOWN. COOPERATIVE WITH CARE. ANSWERS QUESTIONS APPROPRIATELY. C/O PAIN/DISCOMFORT TO URETHRA; MEDICATED PER EMAR. APPEARED TO REST OFF AND ON OVERNIGHT. NO ACUTE CHANGES NOTED OVERNIGHT. IV FLUIDS/ABX INFUSED WITHOUT COMPLICATION. ROLLE SECURED AND DRAINING TO GRAVITY. BED IN LOWEST POSITION. CALL LIGHT WITHIN REACH. CONTINUED TO MONITOR OVERNIGHT. REPORT GIVEN TO ONCOMING RN.
--- NOTE | 2020-02-04 07:51 | NUR ---
ASSUMED CARE OF PT- BEDSIDE REPORT COMPLETED WITH NIGHT MARISA GEE. PT ADMITTED FOR POSSIBLE SEPSIS. VANCO STARTED, BLOOD CULTURES PENDING VITALS STABLE, PT ALERT AND ORIENTED TO PERSON, PLACE AND SELF. PT AWAKE FOR REPORT AND PARTICIPATED.
--- NOTE | 2020-02-04 12:45 | NUR ---
Initial palliative care consult: Fabien is a 64 year old gentleman with a history of HTN, arthritis and chronic pain, ETOH, obesity, chronic indwelling elizabeth with UTIs. He states that he has had an indwelling elizabeth for the past four months. He was admitted to [facility] on 02/03/20 with a UTI. Fabien reports he has no family and lives alone at a room and board facility. He is independent with his ADLs. He reports weakness and nursing reports he was able to walk around the room once before needing to go back to bed. He denies SOB, CP, N/V and burning in his bladder. He reports no change in appetite. He does complain of random sharp pains in his bladder. Spoke with Dr. Roberts and rec'd an order for flexeril for bladder spasms. Discussed his choice for DNR status. Offered to have pt fill out a POLST form to document his wishes, however Fabien stated that he was not interested in filling out a POLST at this time. Spoke with nursing and updated on PC conversation with pt. PC will continue to assist with symptom management and advanced care planning as needed.
[2020-02-04 14:23] LABS: Vancomycin, Trough 19.4 ug/mL (5.0-10.0)
--- NOTE | 2020-02-04 19:34 | NUR ---
SHIFT SUMMARY- PT HAS HAD NO ACUTE CHANGE T/O THE DAY. NEW ORDER FOR PRN FLEXERIL IN THE EMAR. NIGHT RN WILL ADMINISTER FOR BLADDER SPASAM. ROLLE BAG WAS CHANGED TODAY THE HANGING CLIP WAS BROKEN WHEN PT WAS ASSISTED TO THE BATHROOM. PT ABLE TO AMBULATE TO THE BATHROOM 1PA HOWEVER BECOMES SHAKEY AND EXHAUSTED BY THE TIME HE IS BACK IN BED. PT HAS MINIMAL ACTIVITY TOLLERANCE. NO CURRENT PHYSICAL THERAPY ORDERS AT THIS TIME. MAY BE NEEDED. PASSED ON TO NIGHT MARISA ARAGON IN BEDSIDE REPORT.
--- NOTE | 2020-02-05 04:09 | NUR ---
SHIFT SUMMARY PT HAS HAD NO ACUTE CHANGES THIS SHIFT, MEDICATED 1X FOR BLADDER SPASMS PT THEN SLEPT T/O NIGHT & IS SLEEPING AT THIS TIME, NO OTHER C/O ANY KIND, PT SLEEPING AT THIS TIME, WILL CONT TO MONITOR UNTIL REPORT GIVEN TO DAY RN.
[2020-02-05 05:12] LABS: BASOPHILS ABSOLUTE AUTO 0.03 K/mm3 (0.00-0.23); BASOPHILS PERCENT AUTO 1 % (0-2); EOSINOPHILS ABSOLUTE AUTO 0.14 K/mm3 (0.00-0.68); EOSINOPHILS PERCENT AUTO 3 % (0-6); Hematocrit 41.7 % (37.0-53.0); Hemoglobin 14.2 g/dL (13.5-17.5); IMMATURE GRAN ABSOLUTE AUTO 0.02 K/mm3 (0.00-0.10); IMMATURE GRAN PERCENT AUTO 1 % (0-1); LYMPHOCYTES ABSOLUTE AUTO 1.33 K/mm3 (0.84-5.20); LYMPHOCYTES PERCENT AUTO 31 % (21-46); MONOCYTES ABSOLUTE AUTO 0.38 K/mm3 (0.16-1.47); MONOCYTES PERCENT AUTO 9 % (4-13); Mean Corpuscular HGB 33.7 pg (26.0-34.0); Mean Corpuscular HGB Conc 34.1 g/dL (31.5-36.5); Mean Corpuscular Volume 99 fL (80-100); Mean Platelet Volume 8.2 fL (9.1-12.4); NEUTROPHILS ABSOLUTE AUTO 2.36 K/mm3 (1.96-9.15); NEUTROPHILS PERCENT AUTO 55 % (41-73); Platelet Count 85 K/mm3 (150-400); RDW Standard Deviation 50.9 fL (35.1-46.3); Red Blood Cell Count 4.21 M/mm3 (4.30-5.90); White Blood Cell Count 4.26 K/mm3 (4.00-11.30)
[2020-02-05 05:35] LABS: Alanine Aminotransfer (ALT/SGP 20 U/L (12-78); Albumin/Globulin Ratio 0.8 (0.8-1.8); Alk Phos 68 U/L (50-136); Anion Gap 7 mmol/L (6-16); Aspartate Aminotrans (AST/SGOT 16 U/L (12-37); Bilirubin, Total 0.9 mg/dL (0.1-1.0); Blood Urea Nitrogen 8 mg/dL (8-24); Bun/Creatinine Ratio 9.6 (12.0-20.0); CO2, Blood 27 mmol/L (21-32); Calcium, Blood 8.4 mg/dL (8.5-10.1); Chloride, Blood 104 mmol/L (98-108); Creatinine, Blood 0.83 mg/dL (0.60-1.20); Globulin, Blood 3.7 g/dL (2.2-4.0); Glomerular Filtration Rate >60 (60-); Glucose, Blood 89 mg/dL (70-99); Potassium, Blood 3.7 mmol/L (3.5-5.5); Sodium, Blood 138 mmol/L (136-145); Total Protein, Blood 6.7 g/dL (6.4-8.2)
[2020-02-05 15:34] LABS: Vancomycin, Trough 15.1 ug/mL (5.0-10.0)
--- NOTE | 2020-02-05 15:49 | NUR ---
PT IS A/OX3, PLEASANT AND COOPERATIVE, THE PT APPEARS TO BE BREATHING EASILY ON RA AT THIS TIME, THE PT IS UP WITH MINIMAL ASSIST VERY UNSTEADY ON HIS FEET AT THJIS TIME, THIS AFTERNOON THE PT APPEARED FLUSHED AND SHAKY, THE PT WAS GIVEN LIBRIUM 20 MG, CEWA OF 6 WAS SCORED BY THIS RN, THE PT WAS UP INTO THE CHAIT X1 THIS AFTERNOON, THE PT WAS UP AND SHOWERED ALSO, PT DENIED ANY PAIN, CALL LIGHT IN REACH WILL CONTINUE TO MONITOR FOR CHANGES
[2020-02-06 07:07] LABS: HBSAG SCREEN Negative (Negative); HEP B CORE AB, TOT Negative (Negative); HEP C VIRUS AB <0.1 (0.0-0.9)
[2020-02-06] MEDS ORDERED: Amoxicillin500 MG PO (09:56)
[2020-02-06] MEDS ORDERED: CYAN500 PO (09:56)
[2020-02-06] MEDS ORDERED: FOLI1 PO (09:56)
[2020-02-06] MEDS ORDERED: Hair, Skin & N1 EACH PO (09:57)
[2020-02-06] MEDS ORDERED: BACTRIM DS TAB1 EACH PO (09:57)
[2020-02-06] MEDS ORDERED: B-1100 M1 PO (09:57)
--- NOTE | 2020-02-06 11:28 | NUR ---
SUMMARY/DISCHARGE PT IS A/O X4, STATE NO PAIN/DISCOMFORT. STATE NO ETOH W/D ISSUES. DR HELM IN TO ASSESS/REVIEW LABS, TESTS. STAQTE OK FOR D/C TODAY, PROVIDE ORDERS. PT STATE FEELS READY FOR D/C. STATE HOMELESSNESS, NO FAMILY. STATE UNABLE TO PURCHASE ANTIBX @ THIS TIME. MD DO RESIDENT URGENT CARE OBTAIN VIKI VOUCHERS, FAX TO [facility], PT PROVIDED HARD COPY CARRY-IN. HX CHR ROLLE CATH, REVIEWED CLEAN TECHNIQUE w HIM R/T CATH CARE, CHANGING TO LEG BAG, ETC. PROVIDED EXTRA SUPPLIES. D/C INSTRUCT REVIEWED. OTHER NEW MED ORDERS FAXED TO [facility]/REQUEST. IV D/C INTACT. PT DECLINE TAXI TO [facility]. STATE AWARE OF AVAILABLE OPTIONS FOR PENITENTIARY, CHOSES TO AMBULATE FROM HOSP.
== END 2020-02-06 12:00 | disposition home or self-care (01) | DRG 699 ==
LOC: ER 08:49 → MEDS 16:35 → ENPENDDIS 02-06 10:50 → MEDS 02-06 12:00
PROVIDERS: Internal Medicine Gastroenterology; Pharmacist; Physician Assistant; ADMIT Internal Medicine
DX: T83.511A Infection and inflammatory reaction due to indwelling urethral catheter, initial encounter (principal); N12 Tubulo-interstitial nephritis, not specified as acute or chronic; N40.0 Benign prostatic hyperplasia without lower urinary tract symptoms; B95.2 Enterococcus as the cause of diseases classified elsewhere; B96.89 Other specified bacterial agents as the cause of diseases classified elsewhere; D69.6 Thrombocytopenia, unspecified; I10 Essential (primary) hypertension; Z66 Do not resuscitate; F17.220 Nicotine dependence, chewing tobacco, uncomplicated; Z87.440 Personal history of urinary (tract) infections
CPT/HCPCS: 36415; 36416; 51702; 71046; 74176; 80053; 80202; 81001; 82607; 82746; 83605; 83880; 84484; 85025; 86317; 86704; 86708; 86803; 87077; 87086; 87186; 87340; 93005; 93010; 96361-59; 96365-59; 96366-59; 96375-59; 99285-25; A9270; A9270-GY; J0696; J1650; J2405; J3370; J7030; J7050

== ENCOUNTER 2020-03-27 20:32 | Emergency (ER) | payer MEDICARE ==
[~2020-03-27] VITALS: Ht 185.4 cm; Wt 97.5 kg
[~2020-03-27 20:32] MED LIST changes: -LEVO750 PO
[2020-03-28] MEDS ORDERED: LEVO750 PO (23:31)
== END 2020-03-27 22:16 | disposition home or self-care (01) ==
LOC: ER 20:32
DX: T83.098A Other mechanical complication of other urinary catheter, initial encounter (principal); F17.220 Nicotine dependence, chewing tobacco, uncomplicated; Z88.1 Allergy status to other antibiotic agents
CPT/HCPCS: 99283

== ENCOUNTER → 2020-03-27 | Outpatient (CLI) | payer MEDICARE ==
[~2020-03-27] MED LIST changes: +Amoxicillin500 MG PO; +BACTRIM DS TAB1 EACH PO; +CYAN500 PO; +FOLI1 PO; +Hair, Skin & N1 EACH PO; +LEVO750 PO
[2020-03-27 14:18] LABS: BASOPHILS ABSOLUTE AUTO 0.08 K/mm3 (0.00-0.23); BASOPHILS PERCENT AUTO 2 % (0-2); EOSINOPHILS ABSOLUTE AUTO 0.14 K/mm3 (0.00-0.68); EOSINOPHILS PERCENT AUTO 4 % (0-6); Hematocrit 43.9 % (37.0-53.0); Hemoglobin 15.5 g/dL (13.5-17.5); IMMATURE GRAN ABSOLUTE AUTO 0.02 K/mm3 (0.00-0.10); IMMATURE GRAN PERCENT AUTO 1 % (0-1); LYMPHOCYTES ABSOLUTE AUTO 1.32 K/mm3 (0.84-5.20); LYMPHOCYTES PERCENT AUTO 38 % (21-46); MONOCYTES PERCENT AUTO 12 % (4-13); Mean Corpuscular HGB 34.6 pg (26.0-34.0); Mean Corpuscular HGB Conc 35.3 g/dL (31.5-36.5); Mean Corpuscular Volume 98 fL (80-100); Mean Platelet Volume 8.2 fL (9.1-12.4); NEUTROPHILS ABSOLUTE AUTO 1.48 K/mm3 (1.96-9.15); NEUTROPHILS PERCENT AUTO 43 % (41-73); Platelet Count 107 K/mm3 (150-400); RDW Coefficient Variation 13.9 % (11.7-14.2); RDW Standard Deviation 50.4 fL (35.1-46.3); Red Blood Cell Count 4.48 M/mm3 (4.30-5.90); White Blood Cell Count 3.44 K/mm3 (4.00-11.30)
[2020-03-27 14:20] LABS: Alanine Aminotransfer (ALT/SGP 55 U/L (12-78); Albumin, Blood 3.7 g/dL (3.4-5.0); Albumin/Globulin Ratio 0.8 (0.8-1.8); Alk Phos 77 U/L (40-126); Anion Gap 18 mmol/L (6-16); Aspartate Aminotrans (AST/SGOT 59 U/L (12-37); Bilirubin, Total 0.7 mg/dL (0.1-1.0); Blood Urea Nitrogen 8 mg/dL (8-24); Bun/Creatinine Ratio 9.5 (12.0-20.0); CO2, Blood 20 mmol/L (21-32); Calcium, Blood 8.6 mg/dL (8.5-10.1); Chloride, Blood 102 mmol/L (98-108); Creatinine, Blood 0.84 mg/dL (0.60-1.20); Globulin, Blood 4.4 g/dL (2.2-4.0); Glomerular Filtration Rate >60 (60-); Glucose, Blood 89 mg/dL (70-99); Potassium, Blood 4.1 mmol/L (3.5-5.5); Sodium, Blood 140 mmol/L (136-145); Total Protein, Blood 8.1 g/dL (6.4-8.2)
== END ==
LOC: LAB EV 13:54 → LAB SHORT 13:54
PROVIDERS: Family Medicine
DX: R33.9 Retention of urine, unspecified (principal)
CPT/HCPCS: 80053; 85025; 87077; 87086; 87186

== ENCOUNTER 2020-03-28 19:24 | Emergency (ER) | payer MEDICARE ==
[~2020-03-28] VITALS: Ht 185.4 cm; Wt 108.9 kg
[2020-03-28 22:44] LABS: Source, Urine Clean Catch
[2020-03-28 22:48] LABS: Appearance, Urine Clear (Clear); Bilirubin, Urine Neg (Neg); Blood, Urine 4+ (Neg); Color, Urine Amber (P-Yellow); Glucose Qualitative, Urine Neg (Neg); Ketones, Urine Neg (Neg); Leukocyte Esterase, Urine 1+ (Neg); Nitrite, Urine Pos (Neg); Protein, Urine 1+ (Neg); Urobilinogen, Urine NORM (Normal)
[2020-03-28 22:54] LABS: BASOPHILS ABSOLUTE AUTO 0.05 K/mm3 (0.00-0.23); BASOPHILS PERCENT AUTO 2 % (0-2); EOSINOPHILS ABSOLUTE AUTO 0.13 K/mm3 (0.00-0.68); EOSINOPHILS PERCENT AUTO 5 % (0-6); Hematocrit 48.8 % (37.0-53.0); Hemoglobin 16.4 g/dL (13.5-17.5); IMMATURE GRAN ABSOLUTE AUTO 0.02 K/mm3 (0.00-0.10); IMMATURE GRAN PERCENT AUTO 1 % (0-1); LYMPHOCYTES ABSOLUTE AUTO 1.18 K/mm3 (0.84-5.20); LYMPHOCYTES PERCENT AUTO 44 % (21-46); MONOCYTES ABSOLUTE AUTO 0.37 K/mm3 (0.16-1.47); MONOCYTES PERCENT AUTO 14 % (4-13); Mean Corpuscular HGB 33.5 pg (26.0-34.0); Mean Corpuscular HGB Conc 33.6 g/dL (31.5-36.5); Mean Corpuscular Volume 100 fL (80-100); NEUTROPHILS ABSOLUTE AUTO 0.96 K/mm3 (1.96-9.15); NEUTROPHILS PERCENT AUTO 36 % (41-73); RDW Coefficient Variation 13.7 % (11.7-14.2); RDW Standard Deviation 50.6 fL (35.1-46.3); White Blood Cell Count 2.71 K/mm3 (4.00-11.30)
[2020-03-28 22:57] LABS: Mean Platelet Volume 8.5 fL (9.1-12.4); Platelet Count 86 K/mm3 (150-400); U Amphetamine Screen Not Detected; U Barbituate Screen Not Detected; U Benzodiazapine Screen Not Detected; U Cannabinoids Screen Not Detected; U Cocaine Screen Not Detected; U Methadone Screen Not Detected; U Methamphetamine Screen Not Detected; U Opiates Screen Not Detected; U Phencyclidine Screen Not Detected
[2020-03-28 22:58] LABS: Bacteria Mod /hpf; Squamous Epithelial Cells Not Seen /hpf (Few); U Buprenorphine Screen Not Detected; U Oxycodone Screen Not Detected; U Propoxyphene Screen Not Detected
[2020-03-28 22:59] LABS: Hyaline Casts 0-2 /lpf (0-2); Mucus Light (0-Heavy)
[2020-03-28 23:03] LABS: Alanine Aminotransfer (ALT/SGP 60 U/L (12-78); Albumin, Blood 3.8 g/dL (3.4-5.0); Albumin/Globulin Ratio 0.8 (0.8-1.8); Alk Phos 86 U/L (50-136); Anion Gap 7 mmol/L (6-16); Aspartate Aminotrans (AST/SGOT 61 U/L (12-37); Bilirubin, Total 0.7 mg/dL (0.1-1.0); Blood Urea Nitrogen 7 mg/dL (8-24); Bun/Creatinine Ratio 9.7 (12.0-20.0); CO2, Blood 27 mmol/L (21-32); Calcium, Blood 8.7 mg/dL (8.5-10.1); Chloride, Blood 102 mmol/L (98-108); Creatinine, Blood 0.72 mg/dL (0.60-1.20); Ethanol (Alcohol), Blood, Med 283 mg/dL; Globulin, Blood 4.5 g/dL (2.2-4.0); Glomerular Filtration Rate >60 (60-); Glucose, Blood 83 mg/dL (70-99); Potassium, Blood 3.8 mmol/L (3.5-5.5); Salicylate <1.7 mg/dL (2.8-20.0); Sodium, Blood 136 mmol/L (136-145); Total Protein, Blood 8.3 g/dL (6.4-8.2)
[2020-03-28 23:04] LABS: Acetaminophen, Random <2.0 ug/mL (10.0-30.0)
[2020-03-28] MEDS ORDERED: LEVO750 PO (23:31)
== END 2020-03-29 01:46 | disposition home or self-care (01) ==
LOC: ER 19:24
PROVIDERS: Emergency Medicine
DX: N39.0 Urinary tract infection, site not specified (principal); N40.1 Benign prostatic hyperplasia with lower urinary tract symptoms; R33.9 Retention of urine, unspecified; F10.10 Alcohol abuse, uncomplicated; Y90.8 Blood alcohol level of 240 mg/100 ml or more; Z88.1 Allergy status to other antibiotic agents; F17.220 Nicotine dependence, chewing tobacco, uncomplicated
CPT/HCPCS: 36415; 80053; 81001; 85025; G0480; J1956; J2060; J7030

== ENCOUNTER 2020-04-05 08:44 | Inpatient (IN) | payer MEDICARE ==
[~2020-04-05] VITALS: Ht 185.4 cm; Wt 67.1 kg
[~2020-04-05 08:44] MED LIST changes: +LEVO750 PO
[2020-04-05 09:31] LABS: BASOPHILS ABSOLUTE AUTO 0.05 K/mm3 (0.00-0.23); BASOPHILS PERCENT AUTO 1 % (0-2); EOSINOPHILS ABSOLUTE AUTO 0.12 K/mm3 (0.00-0.68); EOSINOPHILS PERCENT AUTO 3 % (0-6); Hematocrit 44.8 % (37.0-53.0); IMMATURE GRAN ABSOLUTE AUTO 0.01 K/mm3 (0.00-0.10); IMMATURE GRAN PERCENT AUTO 0 % (0-1); LYMPHOCYTES ABSOLUTE AUTO 0.92 K/mm3 (0.84-5.20); LYMPHOCYTES PERCENT AUTO 25 % (21-46); MONOCYTES ABSOLUTE AUTO 0.51 K/mm3 (0.16-1.47); MONOCYTES PERCENT AUTO 14 % (4-13); Mean Corpuscular HGB 33.9 pg (26.0-34.0); Mean Corpuscular HGB Conc 33.5 g/dL (31.5-36.5); Mean Corpuscular Volume 101 fL (80-100); Mean Platelet Volume 9.1 fL (9.1-12.4); NEUTROPHILS ABSOLUTE AUTO 2.02 K/mm3 (1.96-9.15); NEUTROPHILS PERCENT AUTO 56 % (41-73); Platelet Count 68 K/mm3 (150-400); RDW Coefficient Variation 13.3 % (11.7-14.2); RDW Standard Deviation 49.7 fL (35.1-46.3); Red Blood Cell Count 4.42 M/mm3 (4.30-5.90); White Blood Cell Count 3.63 K/mm3 (4.00-11.30)
[2020-04-05 09:33] LABS: Alanine Aminotransfer (ALT/SGP 62 U/L (12-78); Albumin, Blood 3.5 g/dL (3.4-5.0); Albumin/Globulin Ratio 0.8 (0.8-1.8); Alk Phos 90 U/L (50-136); Anion Gap 7 mmol/L (6-16); Aspartate Aminotrans (AST/SGOT 55 U/L (12-37); Bilirubin, Total 1.5 mg/dL (0.1-1.0); Blood Urea Nitrogen 15 mg/dL (8-24); Bun/Creatinine Ratio 14.9 (12.0-20.0); CO2, Blood 31 mmol/L (21-32); Calcium, Blood 9.3 mg/dL (8.5-10.1); Chloride, Blood 98 mmol/L (98-108); Creatinine, Blood 1.01 mg/dL (0.60-1.20); Ethanol (Alcohol), Blood, Med <3 mg/dL; Globulin, Blood 4.2 g/dL (2.2-4.0); Glomerular Filtration Rate >60 (60-); Glucose, Blood 105 mg/dL (70-99); Potassium, Blood 3.3 mmol/L (3.5-5.5); Sodium, Blood 136 mmol/L (136-145); Total Protein, Blood 7.7 g/dL (6.4-8.2); Troponin I <0.015 ng/mL (0.000-0.040)
[2020-04-05] MEDS ORDERED: TAMSULOSIN HCL0.4 M1 PO (11:56)
[2020-04-05 12:30] LABS: Source, Urine Catheter
[2020-04-05 12:36] LABS: Blood, Urine 5+ (Neg); Glucose Qualitative, Urine Neg (Neg); Ketones, Urine 2+ (Neg); Leukocyte Esterase, Urine 2+ (Neg); Nitrite, Urine Pos (Neg); Protein, Urine 3+ (Neg); Specific Gravity, Urine 1.025 (1.003-1.022); Urobilinogen, Urine 1+ (Normal)
[2020-04-05 12:44] LABS: Appearance, Urine Hazy (Clear); Bilirubin, Urine 1+ (Neg); Color, Urine Amber (P-Yellow)
[2020-04-05 12:49] LABS: Red Blood Cells, Urine TNTC /hpf (0-2)
[2020-04-05 12:54] LABS: Bacteria Many /hpf; Squamous Epithelial Cells Few /hpf (Few)
[2020-04-05 12:55] LABS: Renal Epithelial Few /hpf (0-Rare)
[2020-04-05 12:56] LABS: Calcium Oxalate Crystals Few /hpf; Mucus Light (0-Heavy)
[2020-04-05 13:01] LABS: U Amphetamine Screen Not Detected; U Barbituate Screen Not Detected; U Benzodiazapine Screen DETECTED; U Buprenorphine Screen Not Detected; U Cannabinoids Screen Not Detected; U Cocaine Screen Not Detected; U Methadone Screen Not Detected; U Methamphetamine Screen Not Detected; U Opiates Screen Not Detected; U Oxycodone Screen Not Detected; U Phencyclidine Screen Not Detected; U Propoxyphene Screen Not Detected
[2020-04-05 15:48] LABS: BASOPHILS ABSOLUTE AUTO 0.03 K/mm3 (0.00-0.23); BASOPHILS PERCENT AUTO 0 % (0-2); EOSINOPHILS ABSOLUTE AUTO 0.14 K/mm3 (0.00-0.68); EOSINOPHILS PERCENT AUTO 2 % (0-6); Hematocrit 47.5 % (37.0-53.0); Hemoglobin 15.9 g/dL (13.5-17.5); IMMATURE GRAN ABSOLUTE AUTO 0.02 K/mm3 (0.00-0.10); IMMATURE GRAN PERCENT AUTO 0 % (0-1); LYMPHOCYTES ABSOLUTE AUTO 1.87 K/mm3 (0.84-5.20); LYMPHOCYTES PERCENT AUTO 27 % (21-46); MONOCYTES ABSOLUTE AUTO 3.64 K/mm3 (0.16-1.47); MONOCYTES PERCENT AUTO 52 % (4-13); Mean Corpuscular HGB 34.3 pg (26.0-34.0); Mean Corpuscular HGB Conc 33.5 g/dL (31.5-36.5); Mean Corpuscular Volume 103 fL (80-100); Mean Platelet Volume 8.8 fL (9.1-12.4); NEUTROPHILS ABSOLUTE AUTO 1.25 K/mm3 (1.96-9.15); NEUTROPHILS PERCENT AUTO 18 % (41-73); RDW Coefficient Variation 13.4 % (11.7-14.2); RDW Standard Deviation 51.5 fL (35.1-46.3); Red Blood Cell Count 4.63 M/mm3 (4.30-5.90); White Blood Cell Count 6.95 K/mm3 (4.00-11.30)
[2020-04-05 16:19] LABS: Platelet Count 42 K/mm3 (150-400)
--- NOTE | 2020-04-05 18:43 | NUR ---
MIGEL SUMMARY; ADMIT FROM ED AT APPROX 1230 FOR ETOH WITHDRAWL. PT HAS BEEN TRYING TO DETOX FOR 3 DAYS WITH USING LIBRIUM. WEAK AND TREMOROUS TODAY. NOTABLE SUNBURNS TO ARMS AND REDNESS TO LOWER LEGS BILATERALLY, REPORTS LOWER LEG STEVE INSUFICIANCY. A/A/OX4, TREMOR TO HANDS ON ARRIVAL, SKIN MOIST, DENIES NAUSEA, VOMITING, OR HALLUCINATIONS. WILL CONTINUE CIWAS AND MEDICATE PER ORDERS. PT REPORTS DRINKING 8-12 24 OZ BEERS PER DAY WITH LAST DRINK BEING 3 DAYS AGO. CURRENTLY HOMELESS WITH NO FAMILY SUPPORT. WILL CONTINUE TO MONITOR UNTIL CHANGE OF SHIFT.
[2020-04-05 22:02] LABS: Hematocrit 41.6 % (37.0-53.0); Hemoglobin 14.1 g/dL (13.5-17.5)
--- NOTE | 2020-04-06 03:57 | NUR ---
ASSUMED CARE OF PATIENT AT 1915. PATIENT ON CIWA CHECKS. ALERT AND ORIENTED WITH COMPLAINTS OF NAUSEA RELIEVED BY ZOFRAN. PATIENT REQUIRING DOSES OF ATIVAN IV DUE TO CIWA > 8. PATIENT WEAK WITH TREMORS DURING AMBULATION TO THE BEDSIDE COMMODE. LOOSE BOWEL MOVEMENT ON BSC. WILL CONTINUE WITH CIWA ASSESSMENTS. CALL LIGHT WITHIN REACH, BED LOWERED TO LOWEST POSITION. BED ALARM ON. WILL CONTINUE TO MONITOR UNTIL END OF SHIFT.
[2020-04-06 04:26] LABS: Hematocrit 40.8 % (37.0-53.0); Hemoglobin 13.5 g/dL (13.5-17.5); Mean Corpuscular HGB 33.7 pg (26.0-34.0); Mean Corpuscular HGB Conc 33.1 g/dL (31.5-36.5); Mean Corpuscular Volume 102 fL (80-100); Mean Platelet Volume 8.7 fL (9.1-12.4); Platelet Count 55 K/mm3 (150-400); RDW Coefficient Variation 13.3 % (11.7-14.2); RDW Standard Deviation 49.7 fL (35.1-46.3); Red Blood Cell Count 4.01 M/mm3 (4.30-5.90); White Blood Cell Count 2.73 K/mm3 (4.00-11.30)
[2020-04-06 04:44] LABS: Alanine Aminotransfer (ALT/SGP 49 U/L (12-78); Albumin, Blood 2.9 g/dL (3.4-5.0); Albumin/Globulin Ratio 0.8 (0.8-1.8); Alk Phos 74 U/L (50-136); Anion Gap 6 mmol/L (6-16); Aspartate Aminotrans (AST/SGOT 47 U/L (12-37); Bilirubin, Direct 0.3 mg/dL (0.0-0.3); Bilirubin, Indirect 0.8 mg/dL (0.1-0.7); Bilirubin, Total 1.1 mg/dL (0.1-1.0); Blood Urea Nitrogen 13 mg/dL (8-24); Bun/Creatinine Ratio 15.2 (12.0-20.0); CO2, Blood 30 mmol/L (21-32); Calcium, Blood 8.5 mg/dL (8.5-10.1); Chloride, Blood 101 mmol/L (98-108); Creatinine, Blood 0.86 mg/dL (0.60-1.20); Globulin, Blood 3.5 g/dL (2.2-4.0); Glomerular Filtration Rate >60 (60-); Glucose, Blood 99 mg/dL (70-99); Magnesium, Blood 2.3 mg/dL (1.6-2.4); Phosphorus, Blood 3.8 mg/dL (2.5-4.9); Potassium, Blood 3.2 mmol/L (3.5-5.5); Sodium, Blood 137 mmol/L (136-145); Total Protein, Blood 6.4 g/dL (6.4-8.2)
--- NOTE | 2020-04-06 10:25 | NUR ---
ASSUMED CARE AT 0700, REPORT FROM MARISA AMIN. RESTING IN BED SLEEPING, ARROUSES TO VERBAL STIMULI. A/A/OX4, SLIGHT TREMOR FELT IN ARMS, NO DIAPHERESIS AT THIS TIME, DENIES NAUSEA OR VOMITING. SUNBURN TO ARMS AND FACE MUCH CRATE BUILDER TODAY, SCD'S IN PLACE TO LOWER LEGS, WILL CONTINUE TO MONITOR.
--- NOTE | 2020-04-06 18:15 | NUR ---
SHIFT SUMAMRY; A/A/OX4 THROUGHOUT SHIFT. Q4 CIWA MAINTAINED AND TREATED NECESSARY. 1 PERSON ASSIST TO CHAIR IN AFTERNOON. VSS, MINIMAL ETOH WITHDRAWL SYMPTOMS THROUGHOUT DAY. ROLLE REMAINS IN PLACE IS CHRONIC. URINE LIGHT TEA COLORED AND CLEAR. WILL CONTINUE TO MONITOR AND TREAT UNTIL CHANGE OF SHIFT.
--- NOTE | 2020-04-06 23:38 | NUR ---
REPORT GIVEN TO MEDICAL NURSE, PATIENT SENT WITH BELONGINGS.
--- NOTE | 2020-04-07 00:06 | NUR ---
PT ARRIVED ON MED FLOOR FROM PCU AT 2345. AAOX4. ABLE TO COMMUNICATE NEEDS. CALL BUTTON EXPLAINED AND PLACED WITHIN REACH. CIWA SCORE OF 7. LIBRIUM ADMINISTERED PER EMAR ROUTINE ORDER. FC PATENT AND DRAINING DARK MARCY COLORED URINE. BED ALARM ON. PT APPEARS TO BE RESTING QUIETLY AT THIS TIME. WILL CONT TO MONITOR.
[2020-04-07 05:49] LABS: Hematocrit 40.2 % (37.0-53.0); Hemoglobin 13.3 g/dL (13.5-17.5); Mean Corpuscular HGB Conc 33.1 g/dL (31.5-36.5); Mean Corpuscular Volume 103 fL (80-100); Mean Platelet Volume 9.1 fL (9.1-12.4); Platelet Count 63 K/mm3 (150-400); RDW Coefficient Variation 13.2 % (11.7-14.2); RDW Standard Deviation 50.2 fL (35.1-46.3); Red Blood Cell Count 3.91 M/mm3 (4.30-5.90); White Blood Cell Count 2.49 K/mm3 (4.00-11.30)
[2020-04-07 06:23] LABS: Alanine Aminotransfer (ALT/SGP 43 U/L (12-78); Albumin, Blood 2.8 g/dL (3.4-5.0); Albumin/Globulin Ratio 0.8 (0.8-1.8); Alk Phos 66 U/L (50-136); Anion Gap 6 mmol/L (6-16); Aspartate Aminotrans (AST/SGOT 33 U/L (12-37); Bilirubin, Total 0.8 mg/dL (0.1-1.0); Blood Urea Nitrogen 14 mg/dL (8-24); Bun/Creatinine Ratio 14.8 (12.0-20.0); CO2, Blood 30 mmol/L (21-32); Calcium, Blood 8.5 mg/dL (8.5-10.1); Chloride, Blood 105 mmol/L (98-108); Creatinine, Blood 0.95 mg/dL (0.60-1.20); Globulin, Blood 3.6 g/dL (2.2-4.0); Glomerular Filtration Rate >60 (60-); Glucose, Blood 94 mg/dL (70-99); Potassium, Blood 3.5 mmol/L (3.5-5.5); Sodium, Blood 141 mmol/L (136-145); Total Protein, Blood 6.4 g/dL (6.4-8.2)
--- NOTE | 2020-04-07 07:44 | NUR ---
SHIFT SUMMARY: VSS. AFEB. AAOX3. PT SLEPT WELL UNTIL THIS AM. WOKE UP FEELING UNWELL. CIWA SCORE OF 14. ROUTINE LIBRIUM ADMINISTERED ORDERED. REEVALUATED PT AFTER 30 MIN. NO CHANGE IN SYMPTOMS. ADMINISTERED ATIVAN 2MG. PT APPEARS MORE RELAXED BUT STATED HE DOES NOT FEEL WELL. UNABLE TO PINPOINT EXACTLY WHAT HE IS FEELING, JUST GENERALLY UNWELL. PT CARE HANDED OFF TO DAY SHIFT RN AT THAT TIME.
--- NOTE | 2020-04-07 15:51 | NUR ---
THE PATIENT HAS NOT BEEN FEELING VERY WELL TODAY. COMPLAINS OF FEELING WEEK AND HAVING NO ENERGY. VITALS THIS MORNING WERE STABLE AND WNL. THE PATIENT DOES ADMIT TO VISUAL AND ADITORY HALLUCINATIONS HE CONTINUES TO WITHDRAWL FROM ETOH. HE HAS BEEN RESTING IN BED AND NAPPING FOR THE MAJORITY OF THE DAY. HE IS RECEIVING A BANANA BAG AT THIS TIME. WILL CONTINUE TO MONITOR AND PROVIDE CARE NEEDED.
--- NOTE | 2020-04-07 19:15 | NUR ---
ASSUMED CARE RECEIVED REPORT FROM MARISA ZULETA. ASSUMED CARE OF PT. PT LETHARGIC, APPEARS HOT AND FLUSHED. STATES HE JUST DOESN'T FEEL WELL. RESPS EVEN AND UNLABORED. RESTING IN BED AT THIS TIME, ORIENTED TO LOCATION, SELF AND DATE. PT DENIES NEEDS AT THIS TIME, CALL LIGHT, POSSESSIONS IN REACH, BED ALARM ON. REMINDED PT TO CALL WITH NEEDS. KAILA.
--- NOTE | 2020-04-08 04:31 | NUR ---
SHIFT SUMMARY PT HAS BEEN ASLEEP FOR MUCH OF THE SHIFT, AROUSES TO VERBAL STIMULI. NO EPISODES OF AGITATION, ANXIETY OR C/O DAVILA NOTED. CIWAs AVERAGING 0. MIDNIGHT DOSE OF LIBRIUM HELD D/T DROWSINESS, WCTM AND REASSESS PT CONDITION FOR 0600 DOSE. RESPS EVEN AND UNLABORED, VS STABLE. PT WAS MONITORED EVERY 1-2 HOURS WITH NEEDS MET. DENIES NEEDS AT THIS TIME. CALL LIGHT, POSSESSIONS IN REACH, BED IN LOWEST POSITION WITH ALARMS ON. WILL CONTINUE TO MONITOR UNTIL DAY RN ASSUMES CARE.
--- NOTE | 2020-04-08 13:25 | NUR ---
called dr Lundy @ 2448 to update on patient with PT eval. Very heavy 2 person assist to EOB. Dr Lundy discontinued the ativan on patients emar.
--- NOTE | 2020-04-08 15:42 | NUR ---
PATIENT CONTINUES TO BE LETHARGIC, EVEN MORE-SO THAN YESTERDAY PER PATIENT. VITALS HAVE BEEN STABLE. LIBRIUM AND LORAZEPAM HAVE BEEN DISCONTINUED PER DR MCCULLOUGH. PATIENT HAD A PT EVAL AND WAS A VERY HEAVY 2 PERSON ASSIST TO EDGE OF BED. PATIENT JUST SLEEPS THE MAJORITY OF THE DAY AND DOES EAT SOME OF HIS FOOD AT MEAL TIME. THE PATIENT CALLS FOR STAFF ASSIST NEEDED. ROLLE REMAINS PATENT AND DRAINS TO GRAVITY. PATIENT IS RESTING IN ROOM AT THIS TIME. WILL CONTINUE TO MONITOR AND PROVIDE CARE NEEDED.
--- NOTE | 2020-04-08 19:10 | NUR ---
ASSUMED CARE RECEIVED REPORT FROM MARISA ZULETA. ASSUMED CARE OF PT. RESTING COMFORTABLY AT THIS TIME. REMAINS LETHARGIC. RESPS EVEN AND UNLABORED. DENIES NEEDS AT THIS TIME. CALL LIGHT, POSSESSIONS IN REACH, BED IN LOWEST POSITION WITH ALARMS ON. WILL CONTINUE TO MONITOR.
--- NOTE | 2020-04-08 20:20 | NUR ---
PHYSICIAN COMMUNICATION SPOKE TO MALLORY PALACIOS REGARDING PT'S C/O BACK PAIN. ORDERS RECEIVED. WCTM.
--- NOTE | 2020-04-09 04:20 | NUR ---
SHIFT SUMMARY PT MUCH MORE ALERT, ABLE TO MAKE NEEDS KNOWN. WAS VOICING C/O BACK PAIN, MEDICATED PER EMAR. REPOSITIONED T/O NIGHT AND HEAT PACK APPLIED TOLERATED. PT DANGLED AT EDGE OF BED, STATING HE NEEDED TO CHANGE POSITIONS R/T HIS BACK PAIN. ENCOURAGED PT TO ATTEMPT SITTING IN RECLINER WHEN PT COMES TO WORK WITH HIM DURING THE DAY TODAY. PT AGREEABLE. REMAINS WEAK AND DE-CONDITIONED, BUT MAKING SMALL IMPROVEMENTS. BLURRED VISION IMPROVING. ENCOURAGED PT TO MAINTAIN BLE ELEVATED TO PROMOTE CIRCULATION. PT VOICING ANXIETY, STATING THAT HE BELIEVES HE IS DYING. PROVIDED REASSURANCE NEEDED, ACKNOWLEDGED FEELINGS, REMINDING PT THAT OUR GOAL IS TO HELP HIM TO RECOVER.
--- NOTE | 2020-04-09 16:20 | NUR ---
PATIENT HAD AN UNEVENTFUL DAY. THE ONLY REAL CHANGE TO REPORT ON WAS THAT HIS ROLLE WAS DISCONTINUED PER ORDERS OF DR MCCULLOUGH. IT HAS BEEN ABOUT 4 HOURS SINCE REMOVAL AND PATIENT HAS YET TO VOID NOR DOES HE HAVE THE URGE. BLADDER SCAN INDICATES ONLY 247cc. VITALS ARE STABLE. PATIENT SEEMS TO BE IMPROVINGIN HIS HEALTH COMPARED TO THE PREVIOUS 2 DAYS. PATIENT LAYING IN BED AT THIS TIME. WILL CONTINUE TO MONITOR AND PROVIDE CARE NEEDED.
--- NOTE | 2020-04-09 19:10 | NUR ---
ASSUMED CARE RECEIVED REPORT FROM MARISA ZULETA. ASSUMED CARE OF PT. PT ALERT, TALKATIVE AND PLEASANT. RESPS EVEN AND UNLABORED AT THIS TIME. DENIES NEEDS. CALL LIGHT, POSSESSIONS IN REACH. BED IN LOWEST POSITION. WCTM.
--- NOTE | 2020-04-09 21:25 | NUR ---
THIS RN IN PT ROOM ADMINISTERING MEDICATIONS. PT ASKING FOR HIS CANDY BARS. THIS RN AND CORE ANALYST LOOKED IN PT BELONGINGS TO TRY TO RETRIEVE IT. NOT PRESENT. OFFERED PT CHOCOLATE PUDDING, PT AGREEABLE. DENIES OTHER NEEDS AT THIS TIME. CALL LIGHT, POSSESSIONS IN REACH. BED IN LOWEST POSITION WITH ALARMS ON.
--- NOTE | 2020-04-10 05:39 | NUR ---
SHIFT SUMMARY PT MUCH MORE ALERT, GAINING STRENGTH. CALLING APPROPRIATELY TO MAKE NEEDS KNOWN. USED BEDPAN AND URINAL NEEDED. VOIDING WITHOUT DIFFICULTY, URINE DARK MARCY, MODERATE AMOUNT OF SEDIMENT NOTED, REPORTS DYSURIA. WILL CONTINUE TO MONITOR SX AND ENCOURAGE FLUIDS TOLERATED. PT NOT SCORING ON CIWA, DENIES DAVILA, BLURRED VISION. VS AND 02 SATS STABLE. ENCOURAGED PT TO ASSIST WITH REPOSITIONING AND PULLING SELF UP IN BED. PT TOLERATED WELL. ASLEEP AT THIS TIME. CALL LIGHT, POSSESSIONS IN REACH. BED IN LOWEST POSITION WITH ALARMS ON. WILL CONTINUE TO MONITOR UNTIL DAY RN ASSUMES CARE.
--- NOTE | 2020-04-10 17:51 | NUR ---
PATIENT A/OX3, FORGETFUL ABOUT SITUATION AT TIMES. VSS, ON RA. UP WITH 1 ASSIST AND FWW TO CHAIR TODAY, ABLE TO FOLLOW COMMANDS. PATIENT CHEWS TOBACCO, BUT REFUSED A NICOTINE PATCH. TAKEN DOWN FOR MRI OF SPINE TODAY, TYLENOL GIVEN FOR BACK PAIN. CONTINENT OF BOWEL AND BLADDER TODAY. FALL PRECAUTIONS PER UNIT PROTOCOL WITH BED ALARM SET. CALM AND COOPERATIVE WITH CARE.
--- NOTE | 2020-04-11 04:51 | NUR ---
SHIFT SUMMARY NO ACUTE CHANGES THIS SHIFT. AOX3. VSS. DENIES PAIN, N/V OR DYSPNEA. HAS BUE TREMORS, MEDICATED W/GABAPENTIN PER ORDERS. CIWAS STOPPED YESTERDAY PER DAY SHIFT RN REPORT TO THIS NURSE. CALL LIGHT IN REACH. WCTM.
--- NOTE | 2020-04-11 17:00 | NUR ---
PATIENT AWAITING PLACEMENT AT [facility]. UP TODAY WITH FWW AND 1 ASSIST TO CHAIR. TOLERATING REGULAR DIET. VSS, ON RA. MEDICATED X2 TODAY FOR BACK PAIN WITH TYLENOL. CONTINENT OF URINE/STOOL. CALM AND COOPERATIVE WITH CARE, CALLS APPROPRIATELY FOR ASSISTANCE.
--- NOTE | 2020-04-11 20:52 | NUR ---
PAIN PT C/O SHARP /10 PAIN IN LOWER BACK, GIVEN 500MG TYLENOL & GABAPENTIN PER ORDERS & PAIN LEVEL STILL 04/21. CT SHOWED BULGED DISK L4-L5. NOTIFIED KHANH Clemens & HE ORDERED TRAMADOL 50MG PO Q6P. WILL MEDICATE & MONITOR PT.
--- NOTE | 2020-04-12 06:29 | NUR ---
SHIFT SUMMARY AOX3. VSS. DENIES N/V, DYSPNEA. REPORTED 9/10 LOWER BACK PAIN, READ PREVIOUS NOTE, MEDICATED PER ORDERS & THIS AM PT STATES PAIN LEVEL IS DOWN TO 2/10. NO OTHER ACUTE CHANGES. AWAITING PLACEMENT. CALL LIGHT IN REACH.
[2020-04-12] MEDS ORDERED: ACET500 PO (14:40)
[2020-04-12] MEDS ORDERED: [UNRECOGNIZED DRUG - OTHER] PO (14:41)
[2020-04-12] MEDS ORDERED: TRAM50 PO (14:46)
--- NOTE | 2020-04-12 16:18 | NUR ---
DISCHARGE DISCHARGE TO [facility]. PATIENT TRANSPORTED VIA [facility]EL[facility] TRANSPORT. IV REMOVED WITHOUT DIFFICULTY. BELONGINGS WITH PATIENT. REPORT CALLED TO RECEIVING NURSE IVAN.
[2020-05-06] MEDS ORDERED: Cymbalta30 MG PO (19:54)
== END 2020-04-12 16:07 | DRG 897 ==
LOC: ER 08:44 → PCU 08:45 → MEDS 04-06 23:31
PROVIDERS: Emergency Medicine; ADMIT Internal Medicine
DX: F10.231 Alcohol dependence with withdrawal delirium (principal); K70.10 Alcoholic hepatitis without ascites; F32.9 Major depressive disorder, single episode, unspecified; D69.6 Thrombocytopenia, unspecified; M54.5 Low back pain; I10 Essential (primary) hypertension; M19.90 Unspecified osteoarthritis, unspecified site; G62.9 Polyneuropathy, unspecified; F17.220 Nicotine dependence, chewing tobacco, uncomplicated; Z66 Do not resuscitate; E87.6 Hypokalemia; N13.9 Obstructive and reflux uropathy, unspecified; R31.9 Hematuria, unspecified; Z96.0 Presence of urogenital implants; R53.1 Weakness; Z59.0 Homelessness
CPT/HCPCS: 36415; 51702; 71045; 72131; 80048; 80053; 80076; 81001; 83735; 83880; 84100; 84443; 84484; 85014; 85018; 85025; 85027; 87086; 93005; 93010; 93971; 96361; 96374; 96375; 96376; 97110; 97116; 97162; 97530; 99285-25; A9270; C9113; G0378; G0480; J2060; J2405; J3411; J3475; J7042

== ENCOUNTER → 2020-05-10 | Outpatient (CLI) | payer MEDICARE ==
[~2020-05-10] MED LIST changes: +ACET500 PO; +Cymbalta30 MG PO; +TAMSULOSIN HCL0.4 M1 PO; +TRAM50 PO; +[UNRECOGNIZED DRUG - OTHER] PO
== END | disposition home or self-care (01) ==
LOC: LAB SHORT 19:02 → LAB EV 19:02
DX: N48.89 Other specified disorders of penis (principal); R33.9 Retention of urine, unspecified
CPT/HCPCS: 87077; 87086; 87186